=== PATIENT | male | born 1945 | race Caucasian/White ===

== ENCOUNTER → 2018-06-17 10:49 | Outpatient (CLI) | payer MEDICARE, OTHER, SELFPAY ==
--- NOTE | 2018-06-17 | DI.RAD.S_ITS ---
PROCEDURE: XR FOOT LT MIN 3V INDICATIONS: Pain in unspecified foot TECHNIQUE: 3 views of the foot were acquired. COMPARISON: None. FINDINGS: Bones: Osteotomy of the fifth metatarsal. No fractures or dislocations. No suspicious bony lesions. There is a large osteophyte at the first metatarsophalangeal joint. Mild degenerative joint disease with joint space narrowing in multiple interphalangeal joints. Soft tissues: No tibiotalar joint effusion. Achilles tendon appears normal. IMPRESSION: 1. Osteotomy of the fifth metatarsal. 2. Large osteophyte at the first metatarsophalangeal joint. 3. Mild degenerative joint disease in multiple interphalangeal joints. Dictated by: Wilbert Moreno M.D. on 06/17/2018 at 16:40 Approved by: Wilbert Moreno M.D. on 06/17/2018 at 16:42
[2018-06-17 11:43] LABS: Add Manual Diff / Slide Review NO; Basophils Percent Auto 0.5 % (0-2); Eosinophils Percent Auto 3.6 % (2-4); Hematocrit 39.4 % (41-53); Lymphocytes Percent Auto 23.9 % (25-40); Mean Corpuscular HGB Conc 35.7 % (30-36); Mean Corpuscular Hemoglobin 30.7 PG (26-34); Mean Corpuscular Volume 86.1 fL (80-100); Monocytes Percent Auto 9.8 % (3-14); Neutrophils Absolute Auto 4000 /uL (3000-5900); Neutrophils Percent Auto 62.2 % (50-75); Platelet Count 159 X10^3/uL (150-400); Red Blood Cell Count 4.57 X10^6/uL (4.5-5.9); Red Cell Distribution Width 13.3 % (11.6-14.8); White Blood Cell Count 6.5 X10^3/uL (4.5-11.0)
[2018-06-17 11:51] LABS: Alanine Aminotransferase 30 IU/L (21-72); Albumin 4.2 g/dL (3.5-5.0); Albumin Globulin Ratio 1.6 (1.0-2.8); Alkaline Phosphatase 53 U/L (38-126); Aspartate Aminotransferase 20 IU/L (17-59); Bilirubin Total 0.7 mg/dL (0.2-1.3); Blood Urea Nitrogen 18 mg/dL (9-20); Calcium 9.1 mg/dL (8.4-10.2); Carbon Dioxide 28 mmol/L (22-32); Chloride 104 mmol/L (98-107); Cholesterol 98 mg/dL (140-199); Estimated Glomerular Filt Rate > 60.0 mL/min (>60); Globulin 2.6 g/dL (1.7-4.1); Glucose 108 mg/dL (80-110); HDL Cholesterol 42 mg/dL (40-60); HEMOLYSIS < 15 (0-50); LDL Cholesterol Calculated 38 mg/dL (<100); Potassium 4.4 mmol/L (3.4-5.1); Sodium 141 mmol/L (137-145); Total Protein 6.8 g/dL (6.3-8.2); Triglycerides 90 mg/dL (35-150)
[2018-06-17 12:20] LABS: Prostate Specific Antigen Scrn 1.41 ng/mL (0.1-4.0)
== END ==
PROVIDERS: PCP Internal Medicine; Visit Provider Internal Medicine
DX: I25.10 Atherosclerotic heart disease of native coronary artery without angina pectoris (principal); E78.00 Pure hypercholesterolemia, unspecified; I10 Essential (primary) hypertension; E66.9 Obesity, unspecified; M79.673 Pain in unspecified foot; Z12.5 Encounter for screening for malignant neoplasm of prostate
CPT/HCPCS: 36415; 73630; 80053; 80061; 85025; G0103

== ENCOUNTER → 2019-04-14 14:08 | Outpatient (CLI) | payer MEDICARE, OTHER, SELFPAY ==
[2019-04-14 15:01] LABS: Add Manual Diff / Slide Review NO; Basophils Absolute Auto 0 /uL (0-100); Basophils Percent Auto 0.5 % (0-2); Eosinophils Absolute Auto 100 /uL (0-450); Eosinophils Percent Auto 1.3 % (2-4); Hematocrit 42.3 % (41-53); Hemoglobin 14.7 g/dL (13.5-17.5); Lymphocytes Absolute Auto 1900 /uL (1100-4500); Lymphocytes Percent Auto 23.7 % (25-40); Mean Corpuscular HGB Conc 34.7 % (30-36); Mean Corpuscular Hemoglobin 30.7 PG (26-34); Mean Corpuscular Volume 88.6 fL (80-100); Monocytes Absolute Auto 900 /uL (0-900); Monocytes Percent Auto 11.4 % (3-14); Neutrophils Absolute Auto 5000 /uL (1500-7000); Neutrophils Percent Auto 63.1 % (50-75); Platelet Count 198 X10^3/uL (150-400); Red Blood Cell Count 4.78 X10^6/uL (4.5-5.9); Red Cell Distribution Width 13.3 % (11.6-14.8)
[2019-04-14 15:16] LABS: Alanine Aminotransferase 22 IU/L (21-72); Albumin 4.3 g/dL (3.5-5.0); Albumin Globulin Ratio 1.6 (1.0-2.8); Alkaline Phosphatase 49 U/L (38-126); Aspartate Aminotransferase 20 IU/L (17-59); BUN Creatinine Ratio 24.4 (6-22); Bilirubin Total 0.6 mg/dL (0.2-1.3); Blood Urea Nitrogen 22 mg/dL (9-20); Calcium 9.2 mg/dL (8.4-10.2); Carbon Dioxide 27 mmol/L (22-32); Chloride 103 mmol/L (98-107); Estimated Glomerular Filt Rate > 60.0 mL/min (>60); Globulin 2.7 g/dL (1.7-4.1); Glucose 87 mg/dL (80-110); HEMOLYSIS < 15 (0-50); Potassium 3.8 mmol/L (3.4-5.1); Sodium 138 mmol/L (137-145)
[2019-04-14 15:30] LABS: Erythrocyte Sedimentation Rate 4 MM/HR (0-15)
== END ==
PROVIDERS: PCP Internal Medicine; Visit Provider Internal Medicine
DX: I10 Essential (primary) hypertension (principal); R10.12 Left upper quadrant pain
CPT/HCPCS: 36415; 80053; 85025; 85651

== ENCOUNTER → 2019-12-12 14:02 | Outpatient (CLI) | payer MEDICARE, OTHER, SELFPAY ==
[2019-12-12 16:56] LABS: Alanine Aminotransferase 18 IU/L (<50); Albumin 4.5 g/dL (3.5-5.0); Albumin Globulin Ratio 1.7 (1.0-2.8); Alkaline Phosphatase 58 U/L (38-126); Aspartate Aminotransferase 22 IU/L (17-59); BUN Creatinine Ratio 17.6 (6-22); Bilirubin Total 0.6 mg/dL (0.2-1.3); Blood Urea Nitrogen 22 mg/dL (9-20); Calcium 9.8 mg/dL (8.4-10.2); Carbon Dioxide 28 mmol/L (22-32); Chloride 101 mmol/L (98-107); Cholesterol 110 mg/dL (140-199); Estimated Glomerular Filt Rate 56.3 mL/min (>60); Globulin 2.6 g/dL (1.7-4.1); Glucose 106 mg/dL (80-110); HDL Cholesterol 45 mg/dL (40-60); HEMOLYSIS < 15 (0-50); LDL Cholesterol Calculated 23 mg/dL (<100); Sodium 137 mmol/L (137-145); Total Protein 7.1 g/dL (6.3-8.2); Triglycerides 208 mg/dL (35-150)
== END ==
PROVIDERS: PCP Internal Medicine; Referring Provider Internal Medicine Cardiovascular Disease; Visit Provider Internal Medicine Cardiovascular Disease
DX: E78.2 Mixed hyperlipidemia (principal); I10 Essential (primary) hypertension; I25.119 Atherosclerotic heart disease of native coronary artery with unspecified angina pectoris
CPT/HCPCS: 36415; 80053; 80061

== ENCOUNTER → 2020-07-23 08:42 | Outpatient (CLI) | payer MEDICARE, OTHER, SELFPAY ==
[2020-07-24 14:35] LABS: Fecal Immunochemical Test Negative (Negative)
== END ==
PROVIDERS: PCP Student in an Organized Health Care Education/Training Program; Referring Provider Student in an Organized Health Care Education/Training Program; Visit Provider Student in an Organized Health Care Education/Training Program
DX: Z12.11 Encounter for screening for malignant neoplasm of colon (principal)
CPT/HCPCS: 36415; 82274

== ENCOUNTER → 2020-11-29 15:54 | Outpatient (CLI) | payer MEDICARE, OTHER, SELFPAY ==
--- NOTE | 2020-11-29 15:56 | DI.MRI.S_ITS ---
PROCEDURE: MR KNEE RT WO CON INDICATIONS: Right knee pain TECHNIQUE: Noncontrast sagittal PD fast spin echo and T2 fast spin echo with fat saturation, sagittal 3-D FLASH with fat saturation; coronal T1 spin echo and PD fast spin echo with fat saturation, and axial PD fast spin echo with fat saturation through the knee. COMPARISON: None. FINDINGS: Image quality: Excellent. Menisci: Medial meniscal tear involving the posterior horn and body. Abnormal signal extends to the superior and inferior articular surfaces and there is a 4 mm parameniscal cyst adjacent to the body on image 29/14. Slight partial extrusion. Lateral meniscus intact. Cruciate ligaments: Anterior cruciate ligament appears intact. Posterior cruciate ligament appears intact. Medial structures: There is medial bowing of the medial collateral ligament, with mild internal signal changes and no complete rupture. There is adjacent soft tissue edema. The appearance could reflect reactive changes to medial compartment pathology, versus low-grade sprain of the MCL. Pes anserinus tendons appear grossly unremarkable. Semimembranosus insertional tendinopathy. Lateral structures: The lateral collateral ligament intact. Biceps femoris tendon appears intact. Popliteus tendon grossly unremarkable. Iliotibial band appears intact. Anterior structures: Quadriceps tendon intact. Medial and lateral patellofemoral ligaments intact. There is mild patellar tendinopathy. Prepatellar and superficial infrapatellar subcutaneous edema/fluid. Bones and cartilage: Circumferential subcutaneous edema. No focal marrow contusion or discrete low signal fracture line. Within the medial compartment, mild diffuse surface fraying of the femoral and tibial cartilage without focal defect. Within the lateral compartment, cartilage appears intact Within the patellofemoral compartment, cartilage appears grossly intact. Joint space: Small joint effusion. No Rossi's cyst. No specific evidence of intra-articular loose body. IMPRESSION: Medial meniscal tear involving the posterior horn and body, with associated 4 mm parameniscal cyst adjacent to the body. There is also slight partial extrusion Adjacent MCL changes as above. Mild degenerative joint disease Small joint effusion Mild patellar tendinopathy with adjacent fluid and edema. Circumferential subcutaneous edema. Dictated by: Jose Mckeon M.D. on 11/30/2020 at 8:44 Approved by: Jose Mckeon M.D. on 11/30/2020 at 9:32
== END ==
PROVIDERS: PCP Student in an Organized Health Care Education/Training Program; Referring Provider Student in an Organized Health Care Education/Training Program; Visit Provider Student in an Organized Health Care Education/Training Program
DX: S83.241A Other tear of medial meniscus, current injury, right knee, initial encounter (principal); M25.461 Effusion, right knee
CPT/HCPCS: 73721

== ENCOUNTER → 2021-03-25 13:33 | Outpatient (CLI) | payer MEDICARE, OTHER, SELFPAY ==
[2021-03-25 14:29] LABS: Hematocrit 40.1 % (41-53); Hemoglobin 13.9 g/dL (13.5-17.5); Mean Corpuscular HGB Conc 34.6 % (30-36); Mean Corpuscular Hemoglobin 30.9 PG (26-34); Mean Corpuscular Volume 89.3 fL (80-100); Platelet Count 177 X10^3/uL (150-400); Red Blood Cell Count 4.49 X10^6/uL (4.5-5.9); Red Cell Distribution Width 13.7 % (11.6-14.8); White Blood Cell Count 7.2 X10^3/uL (4.5-11.0)
[2021-03-25 14:38] LABS: Alanine Aminotransferase 18 IU/L (<50); Albumin 4.1 g/dL (3.5-5.0); Albumin Globulin Ratio 1.6 (1.0-2.8); Alkaline Phosphatase 60 U/L (38-126); Aspartate Aminotransferase 23 IU/L (17-59); BUN Creatinine Ratio 22.5 (6-22); Bilirubin Total 0.5 mg/dL (0.2-1.3); Blood Urea Nitrogen 18 mg/dL (9-20); Calcium 9.3 mg/dL (8.4-10.2); Carbon Dioxide 24 mmol/L (22-32); Chloride 102 mmol/L (98-107); Cholesterol 121 mg/dL (140-199); Estimated Glomerular Filt Rate > 60.0 mL/min (>60); Globulin 2.6 g/dL (1.7-4.1); Glucose 96 mg/dL (80-110); HDL Cholesterol 43 mg/dL (40-60); HEMOLYSIS < 15 (0-50); LDL Cholesterol Calculated 13 mg/dL (<100); Sodium 135 mmol/L (137-145); Total Protein 6.7 g/dL (6.3-8.2); Triglycerides 324 mg/dL (35-150)
[2021-03-25 15:08] LABS: TSH w/ Reflex to FT4 1.71 uIU/mL (0.47-4.68)
== END ==
PROVIDERS: PCP Student in an Organized Health Care Education/Training Program; Referring Provider Nurse Practitioner Family; Visit Provider Nurse Practitioner Family
DX: I25.10 Atherosclerotic heart disease of native coronary artery without angina pectoris (principal); I10 Essential (primary) hypertension; E78.2 Mixed hyperlipidemia
CPT/HCPCS: 36415; 80053; 80061; 84443; 85027

== ENCOUNTER → 2021-04-10 13:37 | Outpatient (CLI) | payer MEDICARE, OTHER, SELFPAY ==
[2021-04-10 14:50] LABS: Hematocrit 42.3 % (41-53); Hemoglobin 14.6 g/dL (13.5-17.5); Mean Corpuscular HGB Conc 34.5 % (30-36); Mean Corpuscular Hemoglobin 30.8 PG (26-34); Mean Corpuscular Volume 89.1 fL (80-100); Platelet Count 184 X10^3/uL (150-400); Red Blood Cell Count 4.74 X10^6/uL (4.5-5.9); Red Cell Distribution Width 13.5 % (11.6-14.8)
[2021-04-10 15:45] LABS: TSH w/ Reflex to FT4 1.96 uIU/mL (0.47-4.68)
[2021-04-10 15:51] LABS: BUN Creatinine Ratio 26.1 (6-22); Blood Urea Nitrogen 29 mg/dL (9-20); Calcium 9.5 mg/dL (8.4-10.2); Carbon Dioxide 25 mmol/L (22-32); Chloride 102 mmol/L (98-107); Cholesterol 120 mg/dL (140-199); Estimated Glomerular Filt Rate > 60.0 mL/min (>60); Glucose 107 mg/dL (80-110); HDL Cholesterol 43 mg/dL (40-60); HEMOLYSIS < 15 (0-50); LDL Cholesterol Calculated 53 mg/dL (<100); Potassium 4.1 mmol/L (3.4-5.1); Sodium 134 mmol/L (137-145); Triglycerides 119 mg/dL (35-150)
== END ==
PROVIDERS: PCP Student in an Organized Health Care Education/Training Program; Referring Provider Nurse Practitioner Family; Visit Provider Nurse Practitioner Family
DX: I10 Essential (primary) hypertension (principal); E78.2 Mixed hyperlipidemia
CPT/HCPCS: 36415; 80048; 80061; 84443; 85027

== ENCOUNTER → 2021-05-01 15:14 | Outpatient (CLI) | payer MEDICARE, OTHER, SELFPAY ==
[2021-05-01 17:36] LABS: BUN Creatinine Ratio 22.3 (6-22); Blood Urea Nitrogen 25 mg/dL (9-20); Calcium 9.5 mg/dL (8.4-10.2); Carbon Dioxide 20 mmol/L (22-32); Chloride 103 mmol/L (98-107); Estimated Glomerular Filt Rate > 60.0 mL/min (>60); Glucose 90 mg/dL (80-110); HEMOLYSIS < 15 (0-50); Potassium 4.3 mmol/L (3.4-5.1); Sodium 135 mmol/L (137-145)
== END ==
PROVIDERS: PCP Student in an Organized Health Care Education/Training Program; Referring Provider Nurse Practitioner Family; Visit Provider Nurse Practitioner Family
DX: I10 Essential (primary) hypertension (principal)
CPT/HCPCS: 36415; 80048

== ENCOUNTER → 2022-01-02 12:05 | Outpatient (CLI) | payer MEDICARE, OTHER, SELFPAY ==
[2022-01-03 15:06] LABS: Fecal Immunochemical Test Negative (Negative)
== END ==
PROVIDERS: PCP Student in an Organized Health Care Education/Training Program; Referring Provider Student in an Organized Health Care Education/Training Program; Visit Provider Student in an Organized Health Care Education/Training Program
DX: Z12.11 Encounter for screening for malignant neoplasm of colon (principal)
CPT/HCPCS: 82274

== ENCOUNTER → 2022-08-02 08:12 | Outpatient (CLI) | payer MEDICARE, OTHER, SELFPAY ==
[2022-08-02 12:11] LABS: Add Manual Diff / Slide Review NO; Basophils Absolute Auto 0 /uL (0-100); Basophils Percent Auto 0.7 % (0-2); Eosinophils Absolute Auto 400 /uL (0-450); Eosinophils Percent Auto 6.2 % (2-4); Hematocrit 33.8 % (41-53); Hemoglobin 11.8 g/dL (13.5-17.5); Lymphocytes Absolute Auto 1300 /uL (1100-4500); Lymphocytes Percent Auto 20.5 % (25-40); Mean Corpuscular Hemoglobin 31.7 PG (26-34); Mean Corpuscular Volume 90.7 fL (80-100); Monocytes Absolute Auto 600 /uL (0-900); Monocytes Percent Auto 9.4 % (3-14); Neutrophils Absolute Auto 3900 /uL (1500-7000); Neutrophils Percent Auto 63.2 % (50-75); Platelet Count 168 X10^3/uL (150-400); Red Blood Cell Count 3.72 X10^6/uL (4.5-5.9); White Blood Cell Count 6.2 X10^3/uL (4.5-11.0)
[2022-08-02 13:47] LABS: Hemoglobin A1C% w Est Avg Glu 5.4 % (4.0-6.0)
[2022-08-02 13:54] LABS: BUN Creatinine Ratio 27.7 (6-22); Blood Urea Nitrogen 46 mg/dL (9-20); Calcium 8.7 mg/dL (8.4-10.2); Carbon Dioxide 21 mmol/L (22-32); Chloride 105 mmol/L (98-107); Estimated Glomerular Filt Rate 42 mL/min (>60); Glucose 107 mg/dL (80-110); HEMOLYSIS < 15 (0-50); Potassium 4.9 mmol/L (3.4-5.1); Sodium 137 mmol/L (137-145)
== END ==
PROVIDERS: PCP Student in an Organized Health Care Education/Training Program; Referring Provider Orthopaedic Surgery; Visit Provider Orthopaedic Surgery
DX: Z01.812 Encounter for preprocedural laboratory examination (principal); R73.9 Hyperglycemia, unspecified; M25.561 Pain in right knee
CPT/HCPCS: 36415; 80048; 83036; 85025

== ENCOUNTER → 2022-08-18 08:53 | Outpatient (CLI) | payer MEDICARE, OTHER, SELFPAY ==
[2022-08-18 10:05] LABS: COVID19 -Nasal RAPID Negative (Negative)
== END ==
PROVIDERS: PCP Student in an Organized Health Care Education/Training Program; Referring Provider Orthopaedic Surgery; Visit Provider Orthopaedic Surgery
DX: Z20.822 Contact with and (suspected) exposure to COVID-19 (principal)
CPT/HCPCS: 87635; C9803

== ENCOUNTER 2022-08-20 12:29 | Day surgery (SDC) | payer MEDICARE, OTHER, SELFPAY ==
[2022-08-14 10:31] VITALS: BMI 32.3
[2022-08-20] VITALS (14 sets, daily range): BP systolic 109–131; BP diastolic 51–67; PULSE 56–65; RESP 11–33; TEMP 35.7–36.6; O2SAT 93–99; BMI 32.3
--- NOTE | 2022-08-20 06:00 | DI.RAD.S_ITS ---
PROCEDURE: XR KNEE RT 1TO2V INDICATIONS: prosthesis placement TECHNIQUE: 2 view(s) of the knee acquired. [facility], [facility] KNEE 4+ VIEWS RIGHT, 12/03/2021, 9:19. FINDINGS: Bones: Patient is status post knee joint arthroplasty. Hardware components are in expected positions. Visualized bony structures are intact. Soft tissues: Overlying postoperative changes are noted. IMPRESSION: Status post right total knee arthroplasty without acute hardware complication. Dictated by: Yo Lezama M.D. on 08/20/2022 at 17:24 Approved by: Yo Lezama M.D. on 08/20/2022 at 17:24
[2022-08-20] MEDS: ACETAMINOPHEN 325 MG TABLET 975 MG PO (13:23)
[2022-08-20] MEDS: PREGABALIN 75 MG CAPSULE PO (13:25)
[2022-08-20] MEDS: LACTATED RINGERS 1,000 ML 42 ML IV ×2 (13:51→16:02)
--- NOTE | 2022-08-20 14:09 | PM.PREOP ---
Pre-operative Note COVID-19 COVID-19 status: Negative Result date/Date tested (Pos, Neg/Pending): 08/18/22 Interval Note History & Physical reviewed/Exam performed by Physician: Yes Changes to H&P: No
[2022-08-20] MEDS: CEFAZOLIN 2 GM/100 ML PREMIX 100 ML IV ×2 (15:15→22:57)
[2022-08-20] MEDS: TRANEXAMIC ACID 1,000 MG VIAL 1000 MG INJ ×2 (15:20→16:22)
--- NOTE | 2022-08-20 15:32 | SUR.OPER ---
Supine on padded OR bed. Pillow under head, arms secured on padded armboards <90 degree abduction. Safety belt across torso. Non-operative leg secured with tape over blanket over lower leg. Operative leg secured in DeMayo/Vinnie/Nathe positioner. Foam padded brace at thigh of operative leg.
[2022-08-20] MEDS: BUPIVACAINE 0.25% (PF) 60 ML, EPINEPHrine 0.3 MG INJ (15:47)
[2022-08-20] MEDS: BUPIVACAINE LIPOSOME 266 MG/20 ML VIAL INJ (15:48)
[2022-08-20] MEDS: MORPHINE 4 MG/ML INJ INJ (15:48)
--- NOTE | 2022-08-20 16:36 | P.OP_ITS ---
Operative Date/Time/Diagnoses Date of procedure: 08/20/22 Time of procedure: 16:36 Pre-op diagnosis: Right knee osteoarthritis Post-op diagnosis: same (Also osteonecrosis of the medial femoral condyle) Procedure & Clinicians Procedure: Right total knee replacement Same procedure as scheduled: Yes Indications: The patient has had progressively worsening right knee pain with radiographic changes consistent with arthritis. Non-operative management has failed and the patient has requested total knee replacement. The risks, benefits and alter natives to surgery were discussed with the patient prior to proceeding. Risks discussed included, but were not limited to, failure to relieve pain, stiffness, infection, nerve damage, deep venous thrombosis, pulmonary embolism, stroke, coma, heart attack, permanent paralysis and , as well as the potential need for eventual revision of the prosthetic. 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 Closure Type: primary Specimen(s): none sent Prosthetic devices, grafts, tissues, transplants, or devices: Implants used in this procedure were manufactured by the [employer] and [employer] and included the BCS II Journey total knee replacement with a size 8 right cobalt chromium femoral component, a size 7 right non porous tibial base plate, a 9 mm cross-linked polyethylene tibial insert and a 41 mm oval Angelique II patella. Applied: implant(s) Estimated Blood Loss (mL): 25 Blood products transfused: none Tourniquet time (min): 47 Procedure in detail: The patient was seen in the pre-operative area, where the patient identified the right knee as the operative site and this was marked with my initials. The patient received pre-operative antibiotics, and was taken to the operating room and placed on the operative table in the supine position. After satisfactory anesthesia, a photovoltaic subcontractor out was performed. The right leg was encircled with a tourniquet about the proximal thigh, and the leg was prepared from the toes to the tourniquet with ChloroPrep in the usual fashion and draped through sterile drapes. The leg was elevated and exsanguinated with Eschmark bandage and the tourniquet inflated to 250 mmHg pressure. The knee was approached through an approximately 18 cm incision centered over the patella and carried into the knee through a medial parapatellar arthrotomy. The anterior osteophytes and soft tissues were removed. The rotational landmarks of Buchanan's line and the transepicondylar axis were marked on the femur with electrocautery, and intramedullary guide holes for the femur and tibia were created. The distal femoral cut was made in 6 degrees of valgus using the i ntramedullary guide at the primary cut setting. The proximal tibial cut was then made using the intramedullary guide, taking 9 mm of bone off the less involved side. The extension gap was checked and the rotation of the femoral component confirmed with the gap balancing system. The anterior, posterior and chamfer cuts were then made. The posterior osteophytes and soft tissues were then removed. The posterior capsule was injected with part of a mixture of 60 ml 0.25% Marcaine mixed with 20 ml Exparel and 4 mg of morphine for post-operative pain control. The remainder of this mixture was injected into the capsule and subcutaneous tissues during cement curing. The tibia was prepared with the rotation set by an extra medullary guide. Trial tibial and femoral components were then placed and the intercondylar notch cut through the femoral trial. Range of motion was 0-140 degrees, with good stability throughout the range. The patella was then cut to accommodate the patellar prosthetic. There was no need for a lateral release. The trials were then removed, and the femoral hole plugged with a bone plug. The bone was prepared with pulsatile lavage, and dried with a sponge. Cement was applied and the final prosthetics placed. Excess cement was removed during and after cement curing. After confirming there was no extruded cement posteriorly, the final tibial insert was placed. The knee was copiously irrigated and the tourniquet deflated. Hemostasis was obtained. The capsule was closed with interrupted # 2 polyester suture. The subcutaneous layer was closed with 3-0 Vicryl, and the skin with a running 3-0 V-Lock suture and Dermabond. An Aquacel Ag dressing was applied and the patient was taken to recovery having tolerated the procedure well. The services of Vishnu Castro were required for positioning, exposure and retraction to protect vital structures. Without her services as a skilled assistant director of residence life the procedure could not have been completed in a safe and expedient fashion. Complications: none Post-operative Condition: stable Disposition: PACU Plan for aftercare: The patient will be maintained on a standard total knee replacement protocol with weight bearing as tolerated. The patient will receive aspirin and sequential compression devices for DVT prophylaxis. The patient will be discharged home when safe for the home environment.
--- NOTE | 2022-08-20 17:28 | SUR.PHASEI ---
Patient transferred to the floor with his walker, CPAP, glasses and two belongings bags. Report given to Kenna. Right knee dressing CDI. IV saline locked. VS stable.
[2022-08-20] MEDS: LACTATED RINGERS 1,000 ML 100 ML IV (18:21)
[2022-08-20] MEDS: ACETAMINOPHEN 325 MG TABLET 650 MG PO (18:31)
[2022-08-20] MEDS: IBUPROFEN 400 MG TABLET PO (18:31)
--- NOTE | 2022-08-20 18:46 | PC.NURSE ---
Patient to floor around 1725. He had a r.total knee surgery, his dressing is cdi with aquacel in place. He has feeling all the way down to his foot. Patient had a spinal so he denies pain. Ate 100% of his dinner, and denies nausea. He has LR at 100cc/hr and is tolerating well. Visiting with daughter at this time. Patient has a small incision to lower back from where spinal was.
[2022-08-20] MEDS: OXYCODONE IR 5 MG TABLET PO ×2 (20:07→23:01)
[2022-08-20] MEDS: ASPIRIN EC 81 MG TABLET PO (20:07)
[2022-08-20] MEDS: DOCUSATE 100 MG CAPSULE PO (20:08)
[2022-08-20] MEDS: ATORVASTATIN 20 MG TABLET PO (20:08)
[2022-08-20] MEDS: carvediloL 12.5 MG TABLET 25 MG PO (20:09)
[2022-08-21] MEDS: ACETAMINOPHEN 325 MG TABLET 650 MG PO ×4 (00:21→18:46)
[2022-08-21] MEDS: IBUPROFEN 400 MG TABLET PO ×5 (00:22→20:09)
[2022-08-21 03:41] VITALS: BP 105/48; PULSE 59; RESP 17; TEMP 36; O2SAT 97
[2022-08-21] MEDS: LACTATED RINGERS 1,000 ML 100 ML IV (04:33)
[2022-08-21] MEDS: CEFAZOLIN 2 GM/100 ML PREMIX 100 ML IV (05:57)
[2022-08-21 06:23] LABS: Hematocrit 29.2 % (41-53)
[2022-08-21 08:00] VITALS: BP 117/53; PULSE 54; RESP 16; TEMP 36.1; O2SAT 96
--- NOTE | 2022-08-21 08:01 | PM.DS.1 ---
History of Present Illness History of Present Illness Date Patient Seen: 08/21/22 Time Patient Seen: 08:01 Chief complaint: OPB Narrative: The history and physical is contained in the chart previously completed note. Please refer to that note for this information. Discharge Providers Provider Date of admission: August 20, 2022 Discharge Date: 08/21/22 Primary care physician: Bogdan Medrano MD Consults: 08/20/22 17:27 Consult to Discharge Planning Routine Comment: Consult to Physical Therapy Evaluate & Treat Comment: Physician Instructions: postop TKA protocol Discharge provider: Vinay Kulkarni MD Summary Hospital Course Discharge Diagnosis: 1. Right knee osteoarthritis 2. 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 Post hemorrhagic anemia Hospital Course: The patient was admitted to the hospital and taken directly to the operating room on August 20, 2022. He underwent a right total knee replacement without complications. He was comfortable on postoperative day 1. He had a moderate post hemorrhagic anemia, this was felt to be something that would resolve with normal diet. Status at Discharge Cognitive/behavioral status at discharge: at baseline, oriented Functional status at discharge: uses cane/walker Overall status at discharge: patient is progressing back to baseline Time Spent with Patient Time spent: Less than 30 minutes Exam Vital Signs (past 8 hours): - 08/21/22 03:41 Temperature 96.8 F L Pulse Rate 59 L Respiratory Rate 17 Blood Pressure 105/48 L Pulse Oximetry 97 Oxygen Flow Rate 0 Oxygen Delivery Method Room Air Oxygen Flow Rate 0 Narrative Exam Narrative: Right knee wound is dressed with no drainage on the bandage. Calf is soft. Light touch and motion are intact in the right lower extremity. 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 Nasal polyposis Obesity (BMI 30-39.9) Obstructive sleep apnea of adult (~2016) Silent ischemia Snoring Surgical History History of cardiac cath History of cataract removal with insertion of prosthetic lens History of coronary artery stent placement Hx of colectomy (2002) Hx of toe surgery (~2006) Status post arthroscopic partial lateral meniscectomy Social History marital status: details: with progressive supranuclear palsy household members: children and none lives independently: Yes caregiver/support person: Yes (he is the caregiver for his ) housing: house Smoking Status: Never smoker alcohol intake: current Discharge Assessment & Plan Assessment and Plan Assessment: Stable postoperative day 1 status post total knee replacement with moderate post hemorrhagic anemia. Pain is well controlled. Plan of Treatment: Likely discharge today. We anticipate his anemia respond to normal dietary measures. Follow up in my office in 10-14 days. Outpatient physical therapy. Medications have been called to the pharmacy for his pain medication. He has been instructed in the use of anti-inflammatories and Tylenol for additional pain relief and the use of low-dose aspirin for DVT prophylaxis. Discharge Plan Discharge Plan Patient Disposition: Home Discharge orders & Medications Discharge Orders: Discharge (Order); Ordered 08/21/22 Ordered By: Vinay Kulkarni Prescriptions: New acetaminophen 325 mg Tablet 650 mg PO Q6HR Qty: 250 0RF aspirin 81 mg Tablet,Delayed Release (Dr/Ec) 81 mg PO BID Qty: 84 0RF oxycodone 5 mg Tablet 5 mg PO Q4H PRN (Reason: Pain, Moderate (4-6)) Qty: 40 0RF Continued carvedilol [Coreg] 25 MG tablet 25 mg PO BID Qty: 0 Fish Oil 1,000 mg PO QDAY Qty: 0 rosuvastatin [Crestor] 20 mg tablet 10 mg PO QDAY Qty: 0 losartan-hydrochlorothiazide 100-25 mg tablet 1 tab PO DAILY doxazosin 1 mg tablet 1 mg PO DAILY spironolactone 25 mg tablet 25 mg PO DAILY naproxen sodium [Aleve] 220 mg Capsule 440 mg PO BID PRN (Reason: Pain) Discontinued aspirin [Adult Low Dose Aspirin] 81 mg tablet,delayed release (DR/EC) 81 mg PO DAILY acetaminophen 500 mg Tablet 1,300 mg PO BID PRN (Reason: Pain) No Action (DME) [employer] AirSense 10 Auto See Rx Instructions .Route .MEDSUPPLY Rx Instructions: CPAP Min: 6 Max: 12 DME: Follow up/Referrals: Bogdan Medrano MD [Primary Care Provider] - Vinay Kulkarni MD [Physician] - As previously scheduled Diet/Activity/Treatments Diet: Diet as Tolerated and Regular Activity: You may bear weight as tolerated on your right knee. Cold/Heat Therapy: You may apply ice to your right knee for 15 minutes every hour as needed for pain control. Skin/Wound/Dressing Care Report to your healthcare provider any signs of infection, such as:: chills, fever, night sweats, increased pain, unusual drainage and unusual redness Dressing: You may remove the Epifanio wrap 3 days after surgery and shower normally with the deeper dressing in place. Leave the deeper dressing in place until your postoperative follow-up. If the central strip of the dressing becomes saturated with either water or blood, please call the office to have it evaluated. Visit Report/Discharge Packet Instructions: DI for Knee Replacement Stand Alone Forms: Surgery Discharge Discharge Data Primary Care Provider: Bogdan Medrano Attending Provider: Vinay Kulkarni Quality VTE Deep Vein Thrombosis/Pulmonary Embolism Present on Admission: No
--- NOTE | 2022-08-21 09:34 | PT.IIE ---
Current Diagnoses Unilateral primary osteoarthritis, right knee (08/20/22) Surgery Performed Operation Date: 08/20/22 15:15 Actual Procedures p Total Knee Arthroplasty(Right) - Vinay Kulkarni MD Surgical History (Last Reviewed 08/20/22 @ 12:11 by Caty Quinonez, PAOLA) History of cardiac cath History of cataract removal with insertion of prosthetic lens History of coronary artery stent placement Hx of colectomy (2002) Hx of toe surgery (~2006) Status post arthroscopic partial lateral meniscectomy Medical History (Last Reviewed 08/20/22 @ 13:12 by Caty Quinonez, PAOLA) CAD (coronary artery disease) (2004) Diverticular disease of large intestine Excessive daytime sleepiness GERD (gastroesophageal reflux disease) Hyperlipidemia 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 Nasal polyposis Obesity (BMI 30-39.9) Obstructive sleep apnea of adult (~2015) Silent ischemia Snoring Physical Therapy Inpatient Evaluation/Re-Eval M1 PT/OT-IP Prior Functional Status Start: 08/21/22 10:22 Freq: NEEDED Status: Active Protocol: Document 08/21/22 09:34 DLM (Rec: 08/21/22 10:45 DL [id number]) Medical Review Prior Functional Status Medical History Reviewed Yes Diet/Fluid Consistency Regular Communication [place] JOLLA with aides, otherwise WFL Mobility and Gait Independent without device but limping due to right knee pain Activities of Daily Living and IADL's Independent, drives Prior Functional Level (Other details) His 2 Daughters plan to stay with him and assist as needed after surgery. 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 Social History Household Members children,none Living Arrangements House Number of Floors (Floors) One Floor Number of Stairs To Enter/Railing? no steps to enter Home Environment High Toilet,Walk in Shower Home Equipment Front Wheel Walker,Shower Seat with Backrest,Hand Held Shower,Grab Bars Near Toilet, Grab Bars In Shower Employment Status Retired Additional Social History Comment the house has a basement of his main living area is on the first floor, he uses CPAP at night M2 PT-IP Current Condition Start: 08/21/22 10:22 Freq: NEEDED Status: Active Protocol: Document 08/21/22 09:34 DLM (Rec: 08/21/22 10:45 DL [id number]) Physical Therapy Current Condition Current Condition Evaluation Date 08/21/22 Treatment Diagnosis right TKA, impaired gait/ mobility Onset Date 08/20/22 M3 PT-IP Subjective Start: 08/21/22 10:22 Freq: NEEDED Status: Active Protocol: Document 08/21/22 09:34 DLM (Rec: 08/21/22 10:45 [facility] [id number]) Subjective Physical Therapy Visit Type Type Initial Evaluation Visit Start Time 09:00 Visit Stop Time 09:34 Total Visit Minutes 34 Number of SECTIONIZER Visits 0 Physical Therapy Visit Comments Patient Comments His knee is more sore than he expected it. He has out-pt PT scheduled for after surgery but he is worried about rides. Patient Goals Discharge home with his Daughters to help Therapy Pain Assessment Pain When Pain Assessed During Mobility Pain Present Pain Present Pain Reported Location Right Knee Intensity 7 Scale Used Numeric (0 - 10) Description Aching,Tender,Tightness,With Movement Pain Behaviors Facial Grimacing,Guarding, Wincing Pain Management Techniques Apply Cold,Elevation,Re- positioning,Timing of Activity with Medications M4 PT-IP Mobility and Gait Start: 08/21/22 10: Freq: NEEDED Status: Active Protocol: Document 08/21/22 09:34 DL (Rec: 08/21/22 10:45 [facility] [id number]) PT-Bed Mobility Assessment Supine to Sit Supine to Sit Standby Assistance,Head of Bed Elevated Scooting Scooting to Edge of Bed Independent PT-Transfer Assessment Sit to and From Stand Sit to and from Stand Contact Guard Assistance,Use of Upper Extremities Equipment Transfer Assistive Device Gait Belt,Front Wheeled Walker Transfers Transfer Destination Chair Transfer Technique Stand Step Pivot Transfer Ability Level of Assist Contact Guard Assistance,Use of Upper Extremities Comments Mobility Comments Pt ambulated a short distance in the room before sitting in the recliner. He reports onset of dizziness/light-headedness after sitting. Vitals signs checked with BP 116/62 (Map 80 ), HR 57 and O2 sat on room air 97%. His symptoms resolved with a seated rest break. Pt left up in the recliner with his feet elevated and ice on his right knee. His needs are close and pt instructed to have staff assist with mobility. His nurse was notified of his pain and symptoms during mobility. Gait Assessment Gait Gait Assistance Required: Contact Guard Assist Distance (Feet) 20 Able to Maintain Weight Bearing Status Yes During Gait Assistive Devices Assistive Device Gait Belt,Front Wheeled Walker Gait Deviations General Gait Pattern Antalgic Factors Limiting Gait Function Factors Limiting Gait Function Decreased Activity Tolerance, Decreased Strength,Limited Range of Motion,Pain,Poor Balance Comments Gait Comments He is using significant UE support on the FWW to manage his right knee pain. Adjusted his FWW down one notch to better accomadate his need for UE support. Stair Climbing Assessment Comments Stair Climbing Comments no stairs at home PT-Balance Assessment Sitting Balance and Reactions Static Sitting Balance Ability Good Dynamic Sitting Balance Ability Good Standing Balance and Reactions Static Standing Balance Ability Good Dynamic Standing Balance Ability Fair Device Used FWW M5 PT-IP Objective Assessments Start: 08/21/22 10:22 Freq: NEEDED Status: Active Protocol: Document 08/21/22 09:34 DL (Rec: 08/21/22 10:45 [facility] [id number]) Orientation Orientation/Cognition Level of Alertness Alert Orientation Name,Age,Birthday,Month,Date, Year,Day of Week,Place, Situation Language Function Ability Hard of Hearing Safety Awareness Understands Safety Issues Memory Description No Deficits Noted Comments his hearing aides are at home Gross Range of Motion Upper Extremity ROM Assessment Within Functional Limits Impairments hx of right shoulder soreness that he thinks is arthritic Lower Extremity ROM Assessment Right Impaired Impairments AROM 22-90, he reports inability to fully extend right knee before surgery Strength Upper Extremity Strength Assessment Within Functional Limits Lower Extremity Strength Assessment Right Impaired Hip needs assist to do SLR Knee extension seated 3-/5 Ankle DF 5/5 Comments Strength Comments pain right knee post-op interferes with functional strength Coordination Assessment Gross Coordination Gross Coordination WNL Sensation Assessment Sensation Gross Sensation WNL Comments Sensation Comments tio wrap and dressing on knee that was not removed for this assessment Muscle Tone Muscle Tone WNL Yes M6 PT-IP Treatment Start: 08/21/22 10:22 Freq: NEEDED Status: Active Protocol: Document 08/21/22 09:34 DL (Rec: 08/21/22 10:45 [facility] [id number]) Physical Therapy Treatment Exercises Exercises Ankle Pumps,Quad Sets,Heel Slides,Straight Leg Raises, Short Arc Quads,Passive Knee Extension Hang,Seated Knee Flexion/Extension Education Education Provided Weight Bearing Status,Post-Op Packet,Safety Equipment Issued Equipment Type and Company his FWW from home is in his room [facility] M7 PT-IP Assessment and Plan Start: 08/21/22 10:22 Freq: NEEDED Status: Active Protocol: Document 08/21/22 09:34 DLM (Rec: 08/21/22 10:45 DLM [id number]) PT Summary Assessment and Plan Potential Rehabilitation Potential Excellent Status of Condition at Evaluation Evolving Summary Impairments Pain,ROM,Strength,Balance,Bed Mobility,Transfers,Gait, Activity Tolerance Assessment Summary Jayden shows good effort with therapy today. He feels his knee pain is interfering with his mobility this visit. He tolerated a short distance of gait in his room with the FWW. He got light-headed after gait whenn sitting in the recliner that resolved with seated rest break. He was able to start his knee exercise today. He plans to go home with his Daughters helping him . He will need to be able to progress his gait to more functional distances to be safe to discharge home. he has not stairs to get into his home. Will plan to see him again for therapy this afternoon to determine if he can progress enough to go home or he will need to stay another night. Will continue to work towards his goal of home with assist from his Daughters. Pt plans to work with his nurse on pain management. Goals Bed Mobility Goal Independent Transfer Goal Independent,Front Wheeled Walker Gait Goal Independent,Front Wheel Walker Gait Distance 80 feet Days to Meet Goals 3 Frequency of Treatment Frequency Of Treatment Twice a Day Treatment Plan Physical Therapy Treatment Plan Bed Mobility Training,Transfer Training,Gait Training, Therapeutic Exercise,Balance Retraining,Post Op Education, Discharge Planning,Hot or Cold Pack,Neuromuscular Re-ed Precautions Other Precautions monitor for light-headedness during mobility Weight Bearing Status Weight Bearing Status Weight Bear as Tolerated Recommendations To Nursing Amount of Assist Needed 1 Person Assist Discharge Recommendations PT Discharge Recommendations Home with Assistance, Outpatient PT Other Discharge Recommendations not ready to go home yet today , will see him again in the afternoon Transportation Needs at Discharge Private Vehicle
[2022-08-21 10:05] VITALS: BP 117/53; PULSE 54
[2022-08-21] MEDS: carvediloL 12.5 MG TABLET 25 MG PO (10:05)
[2022-08-21] MEDS: SPIRONOLACTONE 25 MG TABLET PO (10:05)
[2022-08-21 10:06] VITALS: BP 117/53; PULSE 54
[2022-08-21] MEDS: ASPIRIN EC 81 MG TABLET PO ×2 (10:06→20:09)
[2022-08-21] MEDS: DOCUSATE 100 MG CAPSULE PO ×2 (10:06→20:09)
[2022-08-21] MEDS: OXYCODONE IR 5 MG TABLET PO ×2 (10:06→13:08)
[2022-08-21] MEDS: DOXAZOSIN 2 MG TABLET 1 MG PO (10:06)
--- NOTE | 2022-08-21 14:48 | PT.IPTN ---
Current Diagnoses Unilateral primary osteoarthritis, right knee (08/20/22) Surgery Performed Operation Date: 08/20/22 15:15 Actual Procedures p Total Knee Arthroplasty(Right) - Vinay Kulkarni MD Physical Therapy Treatment Note M2 PT-IP Current Condition Start: 08/21/22 10:22 Freq: NEEDED Status: Active Protocol: Document 08/21/22 09:34 DLM (Rec: 08/21/22 10:45 DLM [id number]) Physical Therapy Current Condition Current Condition Evaluation Date 08/21/22 Treatment Diagnosis right TKA, impaired gait/ mobility Onset Date 08/20/22 M3 PT-IP Subjective Start: 08/21/22 10:22 Freq: NEEDED Status: Active Protocol: Document 08/21/22 14:48 DLM (Rec: 08/21/22 15:27 DLM [id number]) Subjective Physical Therapy Visit Type Type Treatment Note Visit Start Time 14:00 Visit Stop Time 14:48 Total Visit Minutes 48 Number of PIG LEAD MELTER HELPER Visits 0 Physical Therapy Visit Comments Patient Comments He does not feel he is ready to go home today due to pain during mobility; he is requesting to stay one more night Patient Goals Discharge home with his Daughters to help Therapy Pain Assessment Pain When Pain Assessed During Mobility Pain Present Pain Present Pain Reported Location Right Knee Intensity 6 Scale Used Numeric (0 - 10) Description Aching,Tender,Tightness,With Movement Pain Behaviors Facial Grimacing,Guarding, Wincing Pain Management Techniques Apply Cold,Elevation,Re- positioning,Timing of Activity with Medications M4 PT-IP Mobility and Gait Start: 08/21/22 10:22 Freq: NEEDED Status: Active Protocol: Document 08/21/22 14:48 DLM (Rec: 08/21/22 15:27 DLM [id number]) PT-Bed Mobility Assessment Supine to Sit Supine to Sit Standby Assistance,Bedrails Sit to Supine Sit to Supine Standby Assistance,Bedrails Scooting Scooting to Edge of Bed Independent PT-Transfer Assessment Sit to and From Stand Sit to and from Stand Standby Assistance,Contact Guard Assistance,Use of Upper Extremities Equipment Transfer Assistive Device Gait Belt,Front Wheeled Walker Transfers Transfer Destination Bed,Chair Transfer Technique Stand Step Pivot Transfer Ability Level of Assist Standby Assistance,Contact Guard Assistance,Use of Upper Extremities Comments Mobility Comments He needs reminders for hand placement and to scoot foot out before sitting during sit- stand. No dizziness/light- headedness this visit. Encouraged pt to do deep breathing during mobility/gait . Pt using left LE to help right LE in/out of bed today to manage his pain. Gait Assessment Gait Gait Assistance Required: Standby Assistance,Contact Guard Assist Distance (Feet) 30 Able to Maintain Weight Bearing Status Yes During Gait Assistive Devices Assistive Device Gait Belt,Front Wheeled Walker Gait Deviations General Gait Pattern Antalgic Factors Limiting Gait Function Factors Limiting Gait Function Decreased Activity Tolerance, Decreased Strength,Limited Range of Motion,Pain,Poor Balance Comments Gait Comments He able to decrease the amount of UE support on FWW during gait, he reports less pain with weight bearing this afternoon Stair Climbing Assessment Comments Stair Climbing Comments no stairs at home PT-Balance Assessment Sitting Balance and Reactions Static Sitting Balance Ability Good Dynamic Sitting Balance Ability Good Standing Balance and Reactions Static Standing Balance Ability Good Dynamic Standing Balance Ability Fair Device Used FWW M5 PT-IP Objective Assessments Start: 08/21/22 10:22 Freq: NEEDED Status: Active Protocol: Document 08/21/22 09:34 DLM (Rec: 08/21/22 10:45 [facility] [id number]) Orientation Orientation/Cognition Level of Alertness Alert Orientation Name,Age,Birthday,Month,Date, Year,Day of Week,Place, Situation Language Function Ability Hard of Hearing Safety Awareness Understands Safety Issues Memory Description No Deficits Noted Comments his hearing aides are at home Gross Range of Motion Upper Extremity ROM Assessment Within Functional Limits Impairments hx of right shoulder soreness that he thinks is arthritic Lower Extremity ROM Assessment Right Impaired Impairments AROM 22-90, he reports inability to fully extend right knee before surgery Strength Upper Extremity Strength Assessment Within Functional Limits Lower Extremity Strength Assessment Right Impaired Hip needs assist to do SLR Knee extension seated 3-/5 Ankle DF 5/5 Comments Strength Comments pain right knee post-op interferes with functional strength Coordination Assessment Gross Coordination Gross Coordination WNL Sensation Assessment Sensation Gross Sensation WNL Comments Sensation Comments tio wrap and dressing on knee that was not removed for this assessment Muscle Tone Muscle Tone WNL Yes M6 PT-IP Treatment Start: 08/21/22 10:22 Freq: NEEDED Status: Active Protocol: Document 08/21/22 14:48 DLM (Rec: 08/21/22 15:27 DL [id number]) Physical Therapy Treatment Exercises Exercises Ankle Pumps,Quad Sets,Heel Slides,Straight Leg Raises, Short Arc Quads,Passive Knee Extension Hang,Seated Knee Flexion/Extension Knee ROM Measurement 20-90 Education Education Provided Weight Bearing Status,Post-Op Packet,Safety Equipment Issued Equipment Type and Company his FWW from home is in his room (davie from [employer]) Other Treatments Other Treatment Performed His Daughter is present and observed this treatment session M7 PT-IP Assessment and Plan Start: 08/21/22 10:22 Freq: NEEDED Status: Active Protocol: Document 08/21/22 14:48 DLM (Rec: 08/21/22 15:27 DLM [id number]) PT Summary Assessment and Plan Summary Impairments Pain,ROM,Strength,Balance,Bed Mobility,Transfers,Gait, Activity Tolerance Progress Towards Goals Slow Progress due to Pain,Slow Progress due to Activity Tolerance Assessment Summary He reports the pain is a little better this afternoon. He was able to make small gains in his mobility and gait this visit. His Daughter is present this visit. Pt continues to feel he is not safe to return home yet today. Notified his nurse. His activity tolerance continues to be low for discharge home but hope to progress to home tomorrow. Goals Bed Mobility Goal Independent Transfer Goal Independent,Front Wheeled Walker Gait Goal Independent,Front Wheel Walker Gait Distance 80 feet Days to Meet Goals 3 Treatment Plan Physical Therapy Treatment Plan Bed Mobility Training,Transfer Training,Gait Training, Therapeutic Exercise,Balance Retraining,Post Op Education, Discharge Planning,Hot or Cold Pack,Neuromuscular Re-ed Precautions Other Precautions monitor for light-headedness during mobility Weight Bearing Status Weight Bearing Status Weight Bear as Tolerated Recommendations To Nursing Amount of Assist Needed 1 Person Assist Discharge Recommendations PT Discharge Recommendations Home with Assistance, Outpatient PT Other Discharge Recommendations not ready to go home yet today , will see him again tomorrow Transportation Needs at Discharge Private Vehicle
--- NOTE | 2022-08-21 15:14 | PC.NURSE ---
BP this am 117/53, HR 54. PA contacted regarding multiple BP and HR meds. Losartan and hydrochlorothiazide held per JADON Ann.
[2022-08-21 20:00] VITALS: BP 107/47; PULSE 64; RESP 18; TEMP 36.4; O2SAT 95
[2022-08-21] MEDS: ATORVASTATIN 20 MG TABLET PO (20:09)
[2022-08-21 20:12] VITALS: BP 107/77; PULSE 64
[2022-08-21] MEDS: SODIUM CHLORIDE 0.9% FLUSH 10 ML IV (20:15)
[2022-08-22] MEDS: IBUPROFEN 400 MG TABLET PO ×4 (00:03→13:00)
[2022-08-22] MEDS: ACETAMINOPHEN 325 MG TABLET 650 MG PO ×3 (00:04→13:00)
[2022-08-22 00:05] VITALS: BP 119/61; PULSE 64; RESP 16; TEMP 36.6; O2SAT 96
[2022-08-22 04:38] VITALS: BP 114/45; PULSE 66; RESP 18; TEMP 36.6; O2SAT 94
[2022-08-22] MEDS: OXYCODONE IR 5 MG TABLET PO ×2 (04:38→09:20)
--- NOTE | 2022-08-22 08:13 | P.DS_ITS ---
History of Present Illness History of Present Illness Date Patient Seen: 08/22/22 Time Patient Seen: 08:13 Chief complaint: Right knee pain s/p right TKA Narrative: Patient is complaining of [id number] right knee pain. He notes his dizzinessAnd lightheadedness has resolved mostly. He is recently undergone a 40 lb weight loss after the of his , which was intentional. Overall he is feeling much better today and would like to be discharged home. Discharge Providers Provider Discharge Date: 08/22/22 Primary care physician: Bogdan Medrano MD Consults: 08/20/22 17:27 Consult to Discharge Planning Routine Comment: Consult to Physical Therapy Evaluate & Treat Comment: Physician Instructions: postop TKA protocol Discharge provider: Lexi Castro PA-C Summary Hospital Course Discharge Diagnosis: Right knee osteoarthriti; osteonecrosis of the medial femoral condyle Hospital Course: Operative Date/Time/Diagnoses Date of procedure: 08/20/22 Time of procedure: 16:36 Procedure & Clinicians Procedure: Right total knee replacement Same procedure as scheduled: Yes Indications: The patient has had progressively worsening right knee pain with radiographic changes consistent with arthritis. Non-operative management has failed and the patient has requested total knee replacement. The risks, benefits and altern atives to surgery were discussed with the patient prior to proceeding. Risks discussed included, but were not limited to, failure to relieve pain, stiffness, infection, nerve damage, deep venous thrombosis, pulmonary embolism, stroke, coma, heart attack, permanent paralysis and , as well as the potential need for eventual revision of the prosthetic. 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 Closure Type: primary Specimen(s): none sent Prosthetic devices, grafts, tissues, transplants, or devices: Implants used in this procedure were manufactured by the [employer] and [employer] and included the BCS II Journey total knee replacement with a size 8 right cobalt chromium femoral component, a size 7 right non porous tibial base plate, a 9 mm cross-linked polyethylene tibial insert and a 41 mm oval Angelique II patella. Applied: implant(s) Estimated Blood Loss (mL): 25 Blood products transfused: none Tourniquet time (min): 47 Status at Discharge Cognitive/behavioral status at discharge: at baseline, oriented Functional status at discharge: uses cane/walker Overall status at discharge: patient is progressing back to baseline Exam Vital Signs (past 8 hours): - 08/22/22 04:38 Temperature 97.9 F Pulse Rate 66 Respiratory Rate 18 Blood Pressure 114/45 L Pulse Oximetry 94 Oxygen Flow Rate 0 Oxygen Delivery Method CPAP Oxygen Flow Rate 0 Narrative Exam Narrative: Pleasant 76-year-old male, resting comfortably in bed, no acute distress. Right knee dressing is clean, dry, intact. Bilateral lower extremity: Motor functions are grossly intact, sensation is grossly intact to light touch, calves are soft and nontender palpation. 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 Nasal polyposis Obesity (BMI 30-39.9) Obstructive sleep apnea of adult (~2015) Silent ischemia Snoring Surgical History History of cardiac cath History of cataract removal with insertion of prosthetic lens History of coronary artery stent placement Hx of colectomy (2002) Hx of toe surgery (~2006) Status post arthroscopic partial lateral meniscectomy Social History marital status: details: with progressive supranuclear palsy household members: children and none lives independently: Yes caregiver/support person: Yes (he is the caregiver for his ) housing: house Smoking Status: Never smoker alcohol intake: current Discharge Assessment & Plan Assessment and Plan Assessment: Stable postoperative day 1 status post total knee replacement with moderate post hemorrhagic anemia. Pain is well controlled. -hypotension, improving symptomatically Plan of Treatment: -mobilize with PT. Weightbearing as tolerated with front wheel walker -We anticipate his anemia respond to normal dietary measures. -continue with multimodal pain management -aspirin 81 mg b.i.d. x6 weeks for DVT prophylaxis -Follow up in my office in 10-14 days. Outpatient physical therapy. -Medications have been called to the pharmacy for his pain medication. He has been instructed in the use of anti-inflammatories and Tylenol for additional pain relief and the use of low-dose aspirin for DVT prophylaxis. Discharge Plan Discharge Plan Patient Disposition: Home Discharge orders & Medications Discharge Orders: Discharge (Order); Ordered 08/22/22 Ordered By: Lexi Castro Prescriptions: New acetaminophen 325 mg Tablet 650 mg PO Q6HR Qty: 250 0RF aspirin 81 mg Tablet,Delayed Release (Dr/Ec) 81 mg PO BID Qty: 84 0RF oxycodone 5 mg Tablet 5 mg PO Q4H PRN (Reason: Pain, Moderate (4-6)) Qty: 40 0RF Continued carvedilol [Coreg] 25 MG tablet 25 mg PO BID Qty: 0 Fish Oil 1,000 mg PO QDAY Qty: 0 rosuvastatin [Crestor] 20 mg tablet 10 mg PO QDAY Qty: 0 losartan-hydrochlorothiazide 100-25 mg tablet 1 tab PO DAILY doxazosin 1 mg tablet 1 mg PO DAILY spironolactone 25 mg tablet 25 mg PO DAILY naproxen sodium [Aleve] 220 mg Capsule 440 mg PO BID PRN (Reason: Pain) Discontinued aspirin [Adult Low Dose Aspirin] 81 mg tablet,delayed release (DR/EC) 81 mg PO DAILY acetaminophen 500 mg Tablet 1,300 mg PO BID PRN (Reason: Pain) No Action (DME) [employer] AirSense 10 Auto See Rx Instructions .Route .MEDSUPPLY Rx Instructions: CPAP Min: 6 Max: 12 DME: Follow up/Referrals: Bogdan Medrano MD [Primary Care Provider] - Vinay Kulkarni MD [Physician] - As previously scheduled Diet/Activity/Treatments Diet: Diet as Tolerated and Regular Activity: You may bear weight as tolerated on your right knee. Cold/Heat Therapy: You may apply ice to your right knee for 15 minutes every hour as needed for pain control. Skin/Wound/Dressing Care Report to your healthcare provider any signs of infection, such as:: chills, fever, night sweats, increased pain, unusual drainage and unusual redness Dressing: You may remove the Epifanio wrap 3 days after surgery and shower normally with the deeper dressing in place. Leave the deeper dressing in place until your postoperative follow-up. If the central strip of the dressing becomes saturated with either water or blood, please call the office to have it evaluated. Visit Report/Discharge Packet Instructions: DI for Knee Replacement Stand Alone Forms: Surgery Discharge Discharge Data Primary Care Provider: Bogdan Medrano Attending Provider: Vinay Kulkarni Quality VTE Deep Vein Thrombosis/Pulmonary Embolism Present on Admission: No
[2022-08-22 08:51] LABS: Hematocrit 29.6 % (41-53); Hemoglobin 10.2 g/dL (13.5-17.5)
[2022-08-22 08:59] VITALS: BP 102/57; PULSE 64; RESP 16; TEMP 36.9; O2SAT 94
[2022-08-22] MEDS: SODIUM CHLORIDE 0.9% FLUSH 10 ML IV (09:10)
[2022-08-22] MEDS: DOCUSATE 100 MG CAPSULE PO (09:19)
[2022-08-22] MEDS: ASPIRIN EC 81 MG TABLET PO (09:19)
--- NOTE | 2022-08-22 11:14 | PT.IPTN ---
Current Diagnoses Unilateral primary osteoarthritis, right knee (08/20/22) Surgery Performed Operation Date: 08/20/22 15:15 Actual Procedures p Total Knee Arthroplasty(Right) - Vinay Kulkarni MD Physical Therapy Treatment Note M2 PT-IP Current Condition Start: 08/21/22 10:22 Freq: NEEDED Status: Active Protocol: Document 08/21/22 09:34 DLM (Rec: 08/21/22 10:45 DLM [id number]) Physical Therapy Current Condition Current Condition Evaluation Date 08/21/22 Treatment Diagnosis right TKA, impaired gait/ mobility Onset Date 08/20/22 M3 PT-IP Subjective Start: 08/21/22 10:22 Freq: NEEDED Status: Active Protocol: Document 08/22/22 11:14 DLM (Rec: 08/22/22 12:25 DLM [id number]) Subjective Physical Therapy Visit Type Type Treatment Note Visit Start Time 10:30 Visit Stop Time 11:14 Total Visit Minutes 44 Number of 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 He c/o changes in his vision where the wall looks like it is moving. Patient Goals Discharge home with his Daughters to help Therapy Pain Assessment Pain When Pain Assessed During Mobility Pain Present Pain Present Pain Reported Location Right Knee Intensity 5 Scale Used Numeric (0 - 10) Description Aching,Tender,Tightness,With Movement Pain Behaviors Facial Grimacing,Guarding, Wincing Pain Management Techniques Apply Cold,Elevation,Re- positioning,Timing of Activity with Medications M4 PT-IP Mobility and Gait Start: 08/21/22 10:22 Freq: NEEDED Status: Active Protocol: Document 08/22/22 11:14 DLM (Rec: 08/22/22 12:25 DLM [id number]) PT-Transfer Assessment Sit to and From Stand Sit to and from Stand Standby Assistance,Use of Upper Extremities Equipment Transfer Assistive Device Gait Belt,Front Wheeled Walker Transfers Transfer Destination Chair Transfer Technique Stand Step Pivot Transfer Ability Level of Assist Standby Assistance,Use of Upper Extremities Comments Mobility Comments Pt is up in the recliner and wants to stay up. Ice applied to knee at end of treatment. He needs verbal cues during sit-stand to manage right LE position and to control his descent. Gait Assessment Gait Gait Assistance Required: Standby Assistance Distance (Feet) 150 Able to Maintain Weight Bearing Status Yes During Gait Assistive Devices Assistive Device Gait Belt,Front Wheeled Walker Gait Deviations General Gait Pattern Antalgic Factors Limiting Gait Function Factors Limiting Gait Function Decreased Activity Tolerance, Decreased Strength,Limited Range of Motion,Pain,Poor Balance Comments Gait Comments He reports no light-headedness with gait. He progressed to gait in the carlson this visit. Stair Climbing Assessment Comments Stair Climbing Comments no stairs at home PT-Balance Assessment Sitting Balance and Reactions Static Sitting Balance Ability Good Dynamic Sitting Balance Ability Good Standing Balance and Reactions Static Standing Balance Ability Good Dynamic Standing Balance Ability Fair Device Used FWW M5 PT-IP Objective Assessments Start: 08/21/22 10:22 Freq: NEEDED Status: Active Protocol: Document 08/21/22 09:34 DLM (Rec: 08/21/22 10:45 DL [id number]) Orientation Orientation/Cognition Level of Alertness Alert Orientation Name,Age,Birthday,Month,Date, Year,Day of Week,Place, Situation Language Function Ability Hard of Hearing Safety Awareness Understands Safety Issues Memory Description No Deficits Noted Comments his hearing aides are at home Gross Range of Motion Upper Extremity ROM Assessment Within Functional Limits Impairments hx of right shoulder soreness that he thinks is arthritic Lower Extremity ROM Assessment Right Impaired Impairments AROM 22-90, he reports inability to fully extend right knee before surgery Strength Upper Extremity Strength Assessment Within Functional Limits Lower Extremity Strength Assessment Right Impaired Hip needs assist to do SLR Knee extension seated 3-/5 Ankle DF 5/5 Comments Strength Comments pain right knee post-op interferes with functional strength Coordination Assessment Gross Coordination Gross Coordination WNL Sensation Assessment Sensation Gross Sensation WNL Comments Sensation Comments tio wrap and dressing on knee that was not removed for this assessment Muscle Tone Muscle Tone WNL Yes M6 PT-IP Treatment Start: 08/21/22 10:22 Freq: NEEDED Status: Active Protocol: Document 08/22/22 11:14 DLM (Rec: 08/22/22 12:25 DLM [id number]) Physical Therapy Treatment Exercises Exercises Ankle Pumps,Quad Sets,Heel Slides,Straight Leg Raises, Short Arc Quads,Passive Knee Extension Hang,Seated Knee Flexion/Extension Knee ROM Measurement 15-85 Education Education Provided Weight Bearing Status,Post-Op Packet,Safety Equipment Issued Equipment Type and Company his FWW from home is in his room (davie from [employer]) Other Treatments Other Treatment Performed no family here this visit M7 PT-IP Assessment and Plan Start: 08/21/22 10:22 Freq: NEEDED Status: Active Protocol: Document 08/22/22 11:14 DLM (Rec: 08/22/22 12:25 DLM [id number]) PT Summary Assessment and Plan Summary Impairments Pain,ROM,Strength,Balance,Bed Mobility,Transfers,Gait, Activity Tolerance Progress Towards Goals Progressing Toward Goals Assessment Summary He reports improved pain management today with use of oxycodone. Unfortunately, he is complaining of vision changes that may be related to pain medications. His nurse and physician are aware. He was able to progress his distance of gait today. He tolerated his exercises well. He appears safe to discharge home with help from his Daughters today. He reports he has out-pt PT scheduled. Goals Bed Mobility Goal Independent Transfer Goal Independent,Front Wheeled Walker Gait Goal Independent,Front Wheel Walker Gait Distance 80 feet Days to Meet Goals 3 Frequency of Treatment Frequency Of Treatment Twice a Day Treatment Plan Physical Therapy Treatment Plan Bed Mobility Training,Transfer Training,Gait Training, Therapeutic Exercise,Balance Retraining,Post Op Education, Discharge Planning,Hot or Cold Pack,Neuromuscular Re-ed Precautions Other Precautions monitor for light-headedness during mobility Weight Bearing Status Weight Bearing Status Weight Bear as Tolerated Recommendations To Nursing Amount of Assist Needed 1 Person Assist Discharge Recommendations PT Discharge Recommendations Home with Assistance, Outpatient PT Other Discharge Recommendations cleared for home today Transportation Needs at Discharge Private Vehicle
[2022-08-22 11:56] VITALS: BP 101/48; PULSE 66; RESP 16; TEMP 35.6; O2SAT 97
--- NOTE | 2022-08-22 13:50 | PC.NURSE ---
Pt is A&Ox3, VSS, afebrile this a.m. Per nursing report pt with some hypotension on previous shift and soft blood pressures. Pt with SBP in low 100's this a.m. and per PA instructed to hold antihypertensive medications for SBP <120. Provided education to patient about blood pressures and taking his blood pressure at home prior to taking his routine blood pressure meds. He acknowledges understanding. This a.m. after breakfast pt reports that he has had some visual disturbances since yesterday (the background of what he looks at, the wall, the floor or blanket moves when he stares at an object)Physical therapist notified as well as . called back and informed that visual disturbances after anesthesia with narcotics commonly occur, and not to be concerned with neuro change. Patient denies dizziness with ambulation and while working with PT or up to bathroom today. Pt is cleared for discharge by PT. He is assisted to the bathroom by nurse and offered assistance to get dressed. He ambulates to the bathroom and he states he wanted to dress himself. RN reviewed instructions for dressing with patient and he verbalized understanding. Pt encouraged to call for assistance if needed. RN in room packing up bipap while patient in the bathroom, and heard patient fall. Pt found sitting up on his buttocks, and states he plopped to the floor on his butt He denied dizziness beforehand.and stated he grabbed handles of two different FWW's in the bathroom and lost his balance. He denied falling on knee or hitting head. He was assisted back to his feet and VSS. MD Kulkarni notified of incident with no new orders. Patient denied injury and there were no observed injuries. Daughter at bedside to assist patient with discharge and to be home with the patient. Reviewed medications, activity, s/sx of infection, complications as well as follow up care with patient. He acknowledges understanding and is escorted via w/ch by [employer]ING MACHINE TENDER to private vehicle with daughter for discharge home.
--- NOTE | 2022-08-22 15:55 | CM.IDA ---
Initial DCP Assessment Note Pt is a 76 yo male, resident of [place], now POD#2 from Rt knee surgery by Dr Kulkarni PCP: Bogdan Medrano Payer: [employer] [facility] [employer] ins. Reviewed chart, pt expected to have discharged 08.21.22; discussed in multidisciplinary rounds this morning. Therapy has cleared pt for return home w/family to assist and pt has planned for home, DC order from Ortho has already been initiated this morning. No barriers identified at this time to patient's safe discharge home w/family to assist; close outpatient f/u recommended. JOAN Leigh
== END 2022-08-22 13:08 | disposition home or self-care (01) ==
LOC: OR 12:32 → AC 17:39
PROVIDERS: Physician Assistant; PCP Student in an Organized Health Care Education/Training Program; Referring Provider Orthopaedic Surgery; Visit Provider Orthopaedic Surgery
PROC: 0SRC0JZ Replacement of Right Knee Joint with Synthetic Substitute, Open Approach (ICD-10-PCS; CPT 27447; principal; 2022-08-20 15:15)
DX: M17.11 Unilateral primary osteoarthritis, right knee (principal); M87.051 Idiopathic aseptic necrosis of right femur; I10 Essential (primary) hypertension; G47.30 Sleep apnea, unspecified; I25.10 Atherosclerotic heart disease of native coronary artery without angina pectoris; E66.9 Obesity, unspecified; Z68.33 Body mass index [BMI] 33.0-33.9, adult
CPT/HCPCS: 27447; 36415; 73560; 85014; 85018; 97110; 97116; 97530; C1776; C1713; C9290; J0171; J0690; J2250; J2270; J2405; J2704; J3010

== ENCOUNTER → 2023-03-17 11:33 | Outpatient (CLI) | payer MEDICARE, OTHER, SELFPAY ==
[2023-03-03 13:33] VITALS: BMI 32.3
[2023-03-17 12:37] LABS: Add Manual Diff / Slide Review NO; Basophils Absolute Auto 0 /uL (0-100); Basophils Percent Auto 0.5 % (0-2); Eosinophils Absolute Auto 300 /uL (0-450); Eosinophils Percent Auto 4.4 % (2-4); Hematocrit 37.7 % (41-53); Hemoglobin 12.8 g/dL (13.5-17.5); Lymphocytes Absolute Auto 1700 /uL (1100-4500); Lymphocytes Percent Auto 23.6 % (25-40); Monocytes Absolute Auto 800 /uL (0-900); Monocytes Percent Auto 11.3 % (3-14); Neutrophils Absolute Auto 4400 /uL (1500-7000); Neutrophils Percent Auto 60.2 % (50-75); Platelet Count 197 X10^3/uL (150-400); Red Blood Cell Count 4.14 X10^6/uL (4.5-5.9); Red Cell Distribution Width 13.9 % (11.6-14.8); White Blood Cell Count 7.4 X10^3/uL (4.5-11.0)
[2023-03-17 12:58] LABS: RBC Urine None Seen (0-5/HPF); WBC Urine 1-5/HPF (0-5/HPF)
[2023-03-17 12:59] LABS: Amorphous Sediment Urine 1+; Bacteria Urine Occasional (0-1); Culture Indicated Urine Cult Not Indicated; Mucus Urine 2+ (Negative); Squamous Epithelial Cell Urine 0-1 /HPF (0-5/HPF)
[2023-03-17 13:04] LABS: Alanine Aminotransferase 17 IU/L (<50); Albumin 4.4 g/dL (3.5-5.0); Albumin Globulin Ratio 1.8 (1.0-2.8); Alkaline Phosphatase 66 U/L (38-126); Aspartate Aminotransferase 21 IU/L (17-59); BUN Creatinine Ratio 27.7 (6-22); Bilirubin Total 0.8 mg/dL (0.2-1.3); Blood Urea Nitrogen 36 mg/dL (9-20); Calcium 9.1 mg/dL (8.4-10.2); Carbon Dioxide 25 mmol/L (22-32); Chloride 101 mmol/L (98-107); Cholesterol 127 mg/dL (140-199); Estimated Glomerular Filt Rate 56 mL/min (>60); Globulin 2.4 g/dL (1.7-4.1); Glucose 98 mg/dL (80-110); HDL Cholesterol 46 mg/dL (40-60); HEMOLYSIS < 15 (0-50); LDL Cholesterol Calculated 51 mg/dL (<100); Potassium 4.7 mmol/L (3.4-5.1); Sodium 135 mmol/L (137-145); Total Protein 6.8 g/dL (6.3-8.2); Triglycerides 148 mg/dL (35-150)
== END ==
PROVIDERS: PCP Pediatrics; Referring Provider Pediatrics; Visit Provider Pediatrics
DX: E78.5 Hyperlipidemia, unspecified (principal); I10 Essential (primary) hypertension; I25.10 Atherosclerotic heart disease of native coronary artery without angina pectoris
CPT/HCPCS: 36415; 80053; 80061; 81015; 85025

== ENCOUNTER → 2023-04-13 08:06 | Outpatient (CLI) | payer MEDICARE, OTHER, SELFPAY ==
[2023-03-03 13:33] VITALS: BMI 32.3
--- NOTE | 2023-04-13 08:07 | DI.US.S_ITS ---
PROCEDURE: US SOFT TISSUE HEAD AND NECK INDICATIONS: RIGHT SIDE NECK MASS TECHNIQUE: Real-time scanning was performed of the neck region of interest, with image documentation. COMPARISON: None. FINDINGS: At the patient indicated area of clinical concern, the soft tissues of the right neck near the submandibular region, an ovoid/reniform structure is present measuring 1.1 x 0.8 x 1.2 cm, likely a lymph node. An expected echogenic central region/hilum is present. IMPRESSION: Corresponding to the patient indicated area of concern, a structure is present likely representing a prominent lymph node measuring 0.8 cm short axis. This is a nonspecific finding, clinical correlation is recommended. Repeat ultrasound or CT of the neck could be obtained as clinically indicated. Dictated by: Reggie Carias M.D. on 04/13/2023 at 12:49 Approved by: Reggie Carias M.D. on 04/13/2023 at 12:51
== END ==
PROVIDERS: PCP Pediatrics; Referring Provider Pediatrics; Visit Provider Pediatrics
DX: R22.1 Localized swelling, mass and lump, neck (principal)
CPT/HCPCS: 76536

== ENCOUNTER → 2023-05-27 10:28 | Outpatient (CLI) | payer MEDICARE, OTHER, SELFPAY ==
[2023-03-03 13:33] VITALS: BMI 32.3
[2023-05-27 12:39] LABS: Add Manual Diff / Slide Review NO; Basophils Absolute Auto 0 /uL (0-100); Basophils Percent Auto 0.5 % (0-2); Eosinophils Absolute Auto 200 /uL (0-450); Eosinophils Percent Auto 3.1 % (2-4); Hemoglobin 12.4 g/dL (13.5-17.5); Lymphocytes Absolute Auto 1400 /uL (1100-4500); Lymphocytes Percent Auto 22.9 % (25-40); Mean Corpuscular HGB Conc 34.4 % (30-36); Mean Corpuscular Hemoglobin 31.7 PG (26-34); Mean Corpuscular Volume 92.2 fL (80-100); Monocytes Absolute Auto 500 /uL (0-900); Monocytes Percent Auto 8.7 % (3-14); Neutrophils Absolute Auto 3900 /uL (1500-7000); Neutrophils Percent Auto 64.8 % (50-75); Platelet Count 180 X10^3/uL (150-400); Red Cell Distribution Width 12.9 % (11.6-14.8)
[2023-05-27 13:09] LABS: Alanine Aminotransferase 19 IU/L (<50); Albumin 4.1 g/dL (3.5-5.0); Albumin Globulin Ratio 1.5 (1.0-2.8); Alkaline Phosphatase 55 U/L (38-126); Aspartate Aminotransferase 24 IU/L (17-59); BUN Creatinine Ratio 29.2 (6-22); Bilirubin Total 0.6 mg/dL (0.2-1.3); Blood Urea Nitrogen 31 mg/dL (9-20); Calcium 9.1 mg/dL (8.4-10.2); Carbon Dioxide 23 mmol/L (22-32); Chloride 104 mmol/L (98-107); Cholesterol 122 mg/dL (140-199); Estimated Glomerular Filt Rate > 60 mL/min (>60); Globulin 2.7 g/dL (1.7-4.1); Glucose 96 mg/dL (80-110); HDL Cholesterol 43 mg/dL (40-60); HEMOLYSIS < 15 (0-50); LDL Cholesterol Calculated 63 mg/dL (<100); Potassium 4.5 mmol/L (3.4-5.1); Sodium 136 mmol/L (137-145); Total Protein 6.8 g/dL (6.3-8.2); Triglycerides 79 mg/dL (35-150)
== END ==
PROVIDERS: PCP Pediatrics; Referring Provider Internal Medicine Cardiovascular Disease; Visit Provider Internal Medicine Cardiovascular Disease
DX: E78.2 Mixed hyperlipidemia (principal); Z79.899 Other long term (current) drug therapy; I10 Essential (primary) hypertension; I48.0 Paroxysmal atrial fibrillation
CPT/HCPCS: 36415; 80053; 80061; 85025

== ENCOUNTER 2024-09-23 08:25 | Inpatient (IN) | payer MEDICARE, OTHER, SELFPAY ==
[2023-03-03 13:33] VITALS: BMI 32.3
[2024-09-23] VITALS (31 sets, daily range): BP systolic 138–199; BP diastolic 61–101; PULSE 60–81; RESP 16–24; TEMP 36.9–37.4; O2SAT 91–96; BMI 31.4
--- NOTE | 2024-09-23 | DI.NM.S_ITS ---
PROCEDURE: NM HIDA NO EJECTION FRACTION RADIOPHARMACEUTICAL: 5.3 mCi Tc-99m mebrofenin IV. INDICATIONS: concern for acalculous cholecystitis TECHNIQUE: Following intravenous administration of Tc-99m mebrofenin, sequential anterior abdominal images were obtained through at least 90 minutes plus a 4 hour delayed image. COMPARISON: None. FINDINGS: There is normal tracer uptake and excretion by the liver. There is normal visualization of intrahepatic ducts, common bile duct. The gallbladder is not visualized. There is normal tracer excretion into duodenum. Images were taking up to 90 minutes and then a 4 hour delayed image was taken. IMPRESSION: Nonvisualization of the gallbladder, concerning for acute cholecystitis. Dictated by: Neftaly Carlson M.D. on 09/23/2024 at 16:53 Approved by: Neftaly Carlson M.D. on 09/23/2024 at 16:59
--- NOTE | 2024-09-23 08:31 | EKG_ITS ---
[address] [address] Test Date: 2024-09-23 Pat Name: Jayden Reyna Department: Room: Gender: Male Offset Platemaker: MORELIA : 1945 Requested By: Order Number: [id number] Reading MD: Reece Hoffmann Measurements Intervals [place] Rate: 74 P: 35 [place]: 180 QRS: -7 QRSD: 92 T: -3 QT: 374 QTc: 415 Interpretive Statements Normal sinus rhythm Inferior infarct , age undetermined Electronically Signed On 09-23-2024 18:52:29 PST by Reece Hoffmann
--- NOTE | 2024-09-23 08:35 | ED_ITS ---
HPI - General Adult General Chief complaint: Abdominal Pain Stated complaint: R SIDE ABD PAIN T-3 Time Seen by Provider: 09/23/24 08:30 History of Present Illness HPI narrative: 79-year-old male complains of 3 days duration of right middle/flank area discomfort, worse with deep inspiration, no cough or shortness of breath, no fevers or chills, no injury or new activities, no rash or skin changes. He still has his appendix and gallbladder. History of kidney stones but this feels different. History of diverticulitis status post remote left-sided partial colectomy. No nausea or vomiting. No diaphoresis. No painful or frequent urination, no change in urine. He felt ?rumbling? in his stomach 2 days ago, and took an old dose of Lomotil, last bowel movement yesterday without black or red color, not loose, no change in caliber. [place] of atrial fibrillation, takes Eliquis anticoagulation, denies pain to legs, denies leg swelling. Related Data Home Medications Medication Instructions Recorded Confirmed losartan 100 125 tab PO DAILY 11/21/21 09/23/24 mg-hydrochlorothiazide 25 mg tablet rosuvastatin 20 mg tablet (Crestor) 10 mg PO QDAY #0 tabs 11/21/21 09/23/24 spironolactone 25 mg tablet 25 mg PO DAILY 11/21/21 09/23/24 ResMed AirSense 10 Auto 01/01/22 09/23/24 apixaban 5 mg tablet (Eliquis) 5 mg PO BID 07/05/24 09/23/24 metoprolol succinate 25 mg 25 mg PO DAILY 09/23/24 09/23/24 tablet,extended release 24 hr Previous Rx's Medication Instructions Recorded aspirin 81 mg tablet,delayed 81 mg PO BID #84 tabs 08/21/22 release Allergies Allergy/AdvReac Type Severity Reaction Status Date / Time Sulfa (Sulfonamide AdvReac Severe It felt Verified 09/22/24 10:44 Antibiotics) like they [SULFA (SULFONAMIDE injected ANTIBIOTICS)] acid in my system - IV amlodipine AdvReac Intermediate Rash Verified 09/22/24 10:44 celecoxib [From CELEBREX] AdvReac Mild Made me Verified 09/22/24 10:44 feel really weird hydrocodone AdvReac Mild Nausea Verified 09/22/24 10:44 Review of Systems Review of Systems Narrative: see HPI Patient History Medical History Enlarged lymph node in neck MIROSLAVA (obstructive sleep apnea) Silent ischemia 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 (BMI 30-39.9) 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 Snoring Excessive daytime sleepiness Nasal polyposis GERD (gastroesophageal reflux disease) Diverticular disease of large intestine Hyperlipidemia CAD (coronary artery disease) (2004) 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 Obstructive sleep apnea of adult (~2016) Surgical History History of total right knee replacement History of cardiac cath Hx of toe surgery (~2006) Status post arthroscopic partial lateral meniscectomy Hx of colectomy (2002) History of coronary artery stent placement History of cataract removal with insertion of prosthetic lens Social History marital status: details: with progressive supranuclear palsy household members: spouse lives independently: Yes caregiver/support person: Yes (he is the caregiver for his ) housing: house Smoking Status: Never smoker alcohol intake: current Smoking Status: Never smoker alcohol intake frequency: a few times a month Exam Narrative Exam Narrative: GENERAL: Well-developed patient, in mild distress. HEAD: Atraumatic. Normocephalic. EYES: Pupils equal round and reactive. Extraocular motions intact. No scleral icterus. No injection or drainage. ENT: Nose without bleeding, purulent drainage. Throat without erythema, tonsillar hypertrophy or exudate. Airway patent. NECK: Trachea midline. Non tender CARDIOVASCULAR: Regular rate and rhythm without murmurs, gallops, or rubs. RESPIRATORY: Clear to auscultation. Breath sounds equal bilaterally. No wheezes, rales, or rhonchi. GASTROINTESTINAL: Abdomen soft, some tenderness right middle quadrant area right periumbilical, no skin rashes, no hyperesthesia on light touch to the skin, nondistended, unremarkable bowel tones without rushes or tinkles, no obvious ventral hernias EXTREMITIES: No edema or joint tenderness. BACK: Nontender without deformity or crepitance. No flank tenderness. NEURO: AOx3. Motor functions grossly nonfocal SKIN: No rash or erythema of visible areas Initial Vital Signs Initial Vital Signs: Vital Signs Pulse Rate 79 09/23/24 08:31 Pulse Oximetry 93 09/23/24 08:31 Course Orders Ordered: ED Orders 09/23/24 14:30 Blood Culture Stat Aspirin (Aspirin Ec 81 Mg Tablet) 81 mg PO BID JARRELL Carvedilol (Carvedilol 12.5 Mg Tablet) 12.5 mg PO BID JARRELL Heparin Sodium (Porcine) (Heparin 5,000 Unit/Ml Vial) 5,000 unit SUBCUT BID JARRELL Hydromorphone HCl (Hydromorphone 0.5 Mg Inj) 0.5 mg IV Q2H PRN PRN Reason: Pain, Severe (7-10) Dextrose/Sodium Chloride (Dextrose 5%-0.9% Ns) 1,000 mls @ 100 mls/hr IV CONT JARRELL Piperacillin Sod/Tazobactam (Sod 3.375 gm/ Sodium Chloride) 100 mls @ 25 mls/hr IV Q8H JARRELL Naloxone HCl (Naloxone 0.4 Mg/Ml Vial) 0.2 mg IV Q2MIN PRN PRN Reason: Opiate Reversal Ondansetron HCl (Ondansetron 4 Mg/2 Ml Inj) 4 mg IV Q8HR PRN PRN Reason: Nausea And Vomiting Discontinued Medications Aspirin (Aspirin Ec 81 Mg Tablet) 81 mg PO DAILY [facility] Hydromorphone HCl (Hydromorphone 0.5 Mg Inj) 0.5 mg IV NOW ONE Stop: 09/23/24 12:15 Last Admin: 09/23/24 14:05 Dose: 0.5 mg Documented By: MARI Hydromorphone HCl (Hydromorphone 0.5 Mg Inj) 0.5 mg IV NOW ONE Stop: 09/23/24 16:31 Last Admin: 09/23/24 16:35 Dose: 0.5 mg Documented By: MARI Sodium Chloride (Normal Saline 0.9%) 1,000 mls @ 1,000 mls/hr IV BOLUS ONE Stop: 09/23/24 09:57 Last Infusion: 09/23/24 10:15 Dose: Infused Documented By: Admin: 09/23/24 09:02 Dose: 1,000 mls/hr Documented By: MARI Piperacillin Sod/Tazobactam (Sod 4.5 gm/ Sodium Chloride) 100 mls @ 200 mls/hr IV NOW ONE Stop: 09/23/24 11:46 Last Infusion: 09/23/24 15:03 Dose: Infused Documented By: Admin: 09/23/24 14:05 Dose: 200 mls/hr Documented By: MARI Piperacillin Sod/Tazobactam (Sod 3.375 gm/ Sodium Chloride) 100 mls @ 25 mls/hr IV Q8H [facility] Vital Signs Vital signs: Vital Signs - 8 hr 09/23/24 11:30 09/23/24 11:30 09/23/24 12:00 Pulse Rate 68 Respiratory Rate 17 Blood Pressure 171/74 H 176/77 H Pulse Oximetry 94 09/23/24 12:00 09/23/24 14:08 09/23/24 14:08 Pulse Rate 69 70 Respiratory Rate 24 20 Blood Pressure 177/77 H Pulse Oximetry 94 09/23/24 14:30 09/23/24 14:31 09/23/24 14:31 Pulse Rate 71 71 Respiratory Rate 22 22 Blood Pressure 164/68 H Pulse Oximetry 93 93 09/23/24 15:00 09/23/24 15:00 09/23/24 15:30 Pulse Rate 71 Respiratory Rate 24 Blood Pressure 163/76 H 162/71 H Pulse Oximetry 93 09/23/24 15:30 09/23/24 16:00 09/23/24 16:00 Pulse Rate 67 68 Respiratory Rate 19 19 Blood Pressure 154/69 H Pulse Oximetry 93 93 09/23/24 16:30 09/23/24 16:31 09/23/24 16:31 Pulse Rate 73 60 Respiratory Rate Blood Pressure 199/85 H Pulse Oximetry 94 94 09/23/24 17:00 09/23/24 17:01 09/23/24 17:01 Pulse Rate 73 73 Respiratory Rate 24 Blood Pressure 155/67 H Pulse Oximetry 91 93 Medical Decision Making Lab Data Lab results reviewed: Yes I reviewed the patient's lab results. Lab results narrative: White blood cell count 04494, hemoglobin normal, platelets adequate. Basic metabolic panel unremarkable. 09/23/24 08:34 09/23/24 08:34 Labs: Lab Results 09/23/24 Range/Units 08:34 WBC 22.6 H (4.5-11.0) X10^3/uL RBC 4.82 (4.5-5.9) X10^6/uL Hgb 14.9 (13.5-17.5) g/dL Hct 44.7 (41-53) % MCV 92.8 (80-100) fL MCH 31.0 (26-34) PG MCHC 33.4 (30-36) % RDW 13.1 (11.6-14.8) % Plt Count 187 (150-400) X10^3/uL Neut % (Auto) 85.9 H (50-75) % Lymph % (Auto) 4.9 L (25-40) % Mineral % (Auto) 8.9 (3-14) % Eos % (Auto) 0.1 L (2-4) % Baso % (Auto) 0.2 (0-2) % Neut # (Auto) 20378 H (3208-2241) /uL Lymph # (Auto) 1100 (2435-0024) /uL Mineral # (Auto) 2000 H (0-900) /uL Eos # (Auto) 0 (0-450) /uL Baso # (Auto) 0 (0-100) /uL Sodium 130 L (137-145) mmol/L Potassium 4.0 (3.4-5.1) mmol/L Chloride 98 (98-107) mmol/L Carbon Dioxide 22 (22-32) mmol/L BUN 21 H (9-20) mg/dL Creatinine 1.16 (0.66-1.25) mg/dL Estimated GFR > 60 (>60) mL/min BUN/Creatinine Ratio 18.1 (6-22) Glucose 186 H (80-110) mg/dL Lactate 1.8 (0.7-2.1) mmol/L Calcium 9.2 (8.4-10.2) mg/dL Total Bilirubin 1.1 (0.2-1.3) mg/dL AST 31 (17-59) IU/L ALT 26 (<50) IU/L Alkaline Phosphatase 54 (38-126) U/L Troponin I < 0.012 (0.01-0.034) ng/mL Total Protein 7.5 (6.3-8.2) g/dL Albumin 4.5 (3.5-5.0) g/dL Globulin 3.0 (1.7-4.1) g/dL Albumin/Globulin Ratio 1.5 (1.0-2.8) Lipase 60 (23-300) U/L Urine Dip Bedside Urine Glucose Negative Bedside Urine Bilirubin - Negative Bedside Urine Ketone - Negative Urine Specific Maupin 1.015 Bedside Urine Occult Blood - Negative Bedside Urine pH 6.0 Bedside Urine Protein - Negative Bedside Urine Urobilinogen - Negative Bedside Urine Nitrite - Negative Bedside Urine Leukocytes - Negative Esterase Point of care testing: Urine Dip Bedside Urine Glucose Negative Bedside Urine Bilirubin - Negative Bedside Urine Ketone - Negative Urine Specific Maupin 1.015 Bedside Urine Occult Blood - Negative Bedside Urine pH 6.0 Bedside Urine Protein - Negative Bedside Urine Urobilinogen - Negative Bedside Urine Nitrite - Negative Bedside Urine Leukocytes - Negative Esterase Imaging Data CT scan - abdomen/pelvis: Radiologist's Impression: [address] [address] [address] Scan Report Signed Patient: Jayden Reyna MR#: [id number] : 1945 Acct:[id number] Age/Sex: 79 / M Date of Service: 09/23/24 Loc: ED Accession Number: [id number] Procedure: CT abdomen pelvis w con Ordering Provider: Marcelo Looney MD PROCEDURE: CT ABDOMEN PELVIS W CON INDICATIONS: R sided abd pain, hx diverticulitis, WBC 22k TECHNIQUE: After the administration of intravenous contrast, axial sections acquired from the lung bases to the pubic symphysis. Coronal and sagittal reformats were performed. For radiation dose reduction, the following was used: automated exposure control, adjustment of mA and/or kV according to patient size. COMPARISON: None. FINDINGS: Image quality: Diagnostic. Lower Chest: Severe coronary artery calcifications. Patchy bibasilar atelectasis, right greater than left, with minimal right pleural effusion. ABDOMEN: Liver: No solid mass. Gallbladder: Highly suspicious for acute cholecystitis. Distended gallbladder with wall thickening and inflammatory change in the adjacent fat. Biliary ducts: No biliary dilation. Pancreas: No ductal dilation. Spleen: Size is within normal limits. Adrenal Glands: No adrenal nodules. Kidneys and Ureters: No hydronephrosis. No solid mass. No complex renal cystic lesion which requires follow up. Stomach and Bowel: Normal colonic caliber, without significant wall thickening. Normal appendix. Peritoneum: No abnormal intraperitoneal fluid. No free air. Ventral Wall: No significant ventral hernia. Abdominal Nodes: No retroperitoneal or mesenteric adenopathy by size criteria. Vessels: Aorta and inferior vena cava are normal in size. PELVIS: Pelvic Organs: Unremarkable. Bladder: No bladder wall thickening, accounting for underdistention. Pelvic Nodes: No enlarged lymph nodes. Miscellaneous: Small fat containing inguinal hernias are seen. Bones: No aggressive osseous abnormality. Lumbar degenerative change with high-grade canal stenosis at L4-L5. IMPRESSION: 1. Findings are highly suspicious for acute cholecystitis. 2. Severe coronary artery calcifications. 3. Minimal bibasilar atelectasis and right pleural fluid. 4. Incidental note made of high-grade canal stenosis at L4-L5. Dictated by: Ronny Orellana M.D. on 09/23/2024 at 11:02 Approved by: Ronny Orellana M.D. on 09/23/2024 at 11:06 ECG Data Attestation: I personally reviewed and interpreted this ECG as follows: Interpretation: Normal sinus rhythm with rate of 74, no obvious ST segment elevation or depression changes. T-wave inversions noted lead 3, upright in lead 2. SC 180, QRS 92, QTC 415. MDM Narrative Medical decision making narrative: 79-year-old male with 3 days duration atraumatic right-sided middle quadrant area discomfort and also in the right mid axillary line, history of kidney stones but this feels different, history of diverticulitis status post left partial colectomy remote, still has appendix and gallbladder, afebrile on triage, sirs screen negative, some tenderness right middle quadrant without guarding or rebound. Labs pending. DDx consider colitis, diverticulitis, bowel obstruction, gallbladder disease, choledocholithiasis, PUD, pancreatitis, UTI/pyelonephritis, ureteral stone, constipation, right lower lobe pneumonia, mesenteric adenitis, early cutaneous zoster, occult peritoneal hemorrhage, other. Anticipate CT abdomen and pelvis imaging, with IV contrast if GFR favorable, otherwise noncontrast. Patient agrees. He declines pain medication at this time when offered. White blood cell count 92756, GFR favorable, liver functions and lipase normal, urine dip pending, lactate added and was normal, troponin negative. CT abdomen and pelvis with IV contrast imaging ordered. IV fluid bolus. Keep NPO. CT abdomen and pelvis with IV contrast. Impressions: ?Findings are highly suspicious for acute cholecystitis. Severe coronary artery calcifications. Minimal bibasilar atelectasis and right pleural fluid. Incidental note made of high-grade canal stenosis L4-L5.? See radiology report General surgery to be paged for consultation. Awaiting call back from surgery Dr. Loo. Blood cultures requested, NKDA, IV Zosyn initiated. Keep NPO. 1150, case discussed with general surgery Dr. Loo, patient takes Eliquis which will need to be held, admit to hospitalist service, who will consult and perform interval cholecystectomy. He would like to obtain HIDA scan, placed order. We will page hospitalist. 1155, case discussed with hospitalist Dr. Hoffmann, await results of HIDA scan anticipate admission, hold Eliquis noted for later cholecystectomy anticipated HIDA scan non visualization, delayed images to be done HIDA scan delayed images, gallbladder still not visualized 1700, case discussed again with surgery Dr. Loo, stated that he spoke to hospitalist Dr. Hoffmann who will admit patient, he will consult, likely surgery after Eliquis has been held couple of days Admit to hospitalist service Dr. Galdamez as planned Critical Care Time Critical Care Time Critical Care Time: Yes Total Critical Care Time: 35 Attestation: The high probability of a clinically significant, sudden or life threatening deterioration of the [abdominal, gastrointestinal] system(s) required my full and direct attention, intervention and personal management. The aggregate critical care time was [35] minutes. This time is in addition to time spent performing reported procedures but includes the following: [x] Data Review and interpretation [x] Patient assessment and monitoring of vital signs [x] Documentation [x] Medication orders and management Discharge Plan Departure Patient Disposition: Admitted As Inpatient Clinical Impression: Acute cholecystitis, Chronic anticoagulation Admit Date/Time: 09/23/24 17:18 Admit Provider: Reece Hoffmann
[2024-09-23 08:43] LABS: Add Manual Diff / Slide Review NO; Basophils Absolute Auto 0 /uL (0-100); Basophils Percent Auto 0.2 % (0-2); Eosinophils Absolute Auto 0 /uL (0-450); Eosinophils Percent Auto 0.1 % (2-4); Hematocrit 44.7 % (41-53); Hemoglobin 14.9 g/dL (13.5-17.5); Lymphocytes Absolute Auto 1100 /uL (1100-4500); Lymphocytes Percent Auto 4.9 % (25-40); Mean Corpuscular HGB Conc 33.4 % (30-36); Mean Corpuscular Volume 92.8 fL (80-100); Monocytes Absolute Auto 2000 /uL (0-900); Monocytes Percent Auto 8.9 % (3-14); Neutrophils Absolute Auto 19400 /uL (1500-7000); Neutrophils Percent Auto 85.9 % (50-75); Platelet Count 187 X10^3/uL (150-400); Red Blood Cell Count 4.82 X10^6/uL (4.5-5.9); Red Cell Distribution Width 13.1 % (11.6-14.8); White Blood Cell Count 22.6 X10^3/uL (4.5-11.0)
[2024-09-23 08:57] LABS: Alanine Aminotransferase 26 IU/L (<50); Albumin 4.5 g/dL (3.5-5.0); Albumin Globulin Ratio 1.5 (1.0-2.8); Alkaline Phosphatase 54 U/L (38-126); Aspartate Aminotransferase 31 IU/L (17-59); BUN Creatinine Ratio 18.1 (6-22); Bilirubin Total 1.1 mg/dL (0.2-1.3); Blood Urea Nitrogen 21 mg/dL (9-20); Calcium 9.2 mg/dL (8.4-10.2); Carbon Dioxide 22 mmol/L (22-32); Chloride 98 mmol/L (98-107); Estimated Glomerular Filt Rate > 60 mL/min (>60); Glucose 186 mg/dL (80-110); HEMOLYSIS < 15 (0-50); Lipase 60 U/L (23-300); Sodium 130 mmol/L (137-145); Total Protein 7.5 g/dL (6.3-8.2)
[2024-09-23] MEDS: SODIUM CHLORIDE 0.9% 1,000 ML 1000 ML IV (09:02)
--- NOTE | 2024-09-23 09:07 | DI.CT.S_ITS ---
PROCEDURE: CT ABDOMEN PELVIS W CON INDICATIONS: R sided abd pain, hx diverticulitis, WBC 22k TECHNIQUE: After the administration of intravenous contrast, axial sections acquired from the lung bases to the pubic symphysis. Coronal and sagittal reformats were performed. For radiation dose reduction, the following was used: automated exposure control, adjustment of mA and/or kV according to patient size. COMPARISON: None. FINDINGS: Image quality: Diagnostic. Lower Chest: Severe coronary artery calcifications. Patchy bibasilar atelectasis, right greater than left, with minimal right pleural effusion. ABDOMEN: Liver: No solid mass. Gallbladder: Highly suspicious for acute cholecystitis. Distended gallbladder with wall thickening and inflammatory change in the adjacent fat. Biliary ducts: No biliary dilation. Pancreas: No ductal dilation. Spleen: Size is within normal limits. Adrenal Glands: No adrenal nodules. Kidneys and Ureters: No hydronephrosis. No solid mass. No complex renal cystic lesion which requires follow up. Stomach and Bowel: Normal colonic caliber, without significant wall thickening. Normal appendix. Peritoneum: No abnormal intraperitoneal fluid. No free air. Ventral Wall: No significant ventral hernia. Abdominal Nodes: No retroperitoneal or mesenteric adenopathy by size criteria. Vessels: Aorta and inferior vena cava are normal in size. PELVIS: Pelvic Organs: Unremarkable. Bladder: No bladder wall thickening, accounting for underdistention. Pelvic Nodes: No enlarged lymph nodes. Miscellaneous: Small fat containing inguinal hernias are seen. Bones: No aggressive osseous abnormality. Lumbar degenerative change with high-grade canal stenosis at L4-L5. IMPRESSION: 1. Findings are highly suspicious for acute cholecystitis. 2. Severe coronary artery calcifications. 3. Minimal bibasilar atelectasis and right pleural fluid. 4. Incidental note made of high-grade canal stenosis at L4-L5. Dictated by: Ronny Orellana M.D. on 09/23/2024 at 11:02 Approved by: Ronny Orellana M.D. on 09/23/2024 at 11:06
[2024-09-23 09:09] LABS: Troponin I < 0.012 ng/mL (0.01-0.034)
[2024-09-23 09:17] LABS: Lactate (Lactic Acid) 1.8 mmol/L (0.7-2.1)
--- NOTE | 2024-09-23 12:02 | PM.CN ---
History of Present Illness Consult details Date Patient Seen: 09/23/24 Time Patient Seen: 12:02 Chief complaint: R SIDE ABD PAIN T-3 Reason for consult: Possible acalculous cholecystitis Narrative: This is an 79-year-old white male, coronary artery disease atrial fibrillation on Eliquis, who has had 3 days of right-sided abdominal pain. Presented a CT scan showed inflammation around the gallbladder but [place] [address]. Meds Home Medications and Allergies Home Medications Medication Instructions Recorded Confirmed Type losartan 100 1 tab PO DAILY 11/21/21 09/22/24 History mg-hydrochlorothiazide 25 mg tablet rosuvastatin 20 mg tablet (Crestor) 10 mg PO QDAY #0 tabs 11/21/21 09/22/24 History spironolactone 25 mg tablet 25 mg PO DAILY 11/21/21 09/22/24 History ResMed AirSense 10 Auto 01/01/22 09/22/24 History aspirin 81 mg tablet,delayed 81 mg PO BID #84 tabs 08/21/22 09/22/24 Rx release carvedilol 25 mg tablet (Coreg) 12.5 mg PO BID #0 tabs 03/17/23 09/22/24 History apixaban 5 mg tablet (Eliquis) 5 mg PO BID 07/05/24 09/22/24 History Allergies Allergy/AdvReac Type Severity Reaction Status Date / Time Sulfa (Sulfonamide AdvReac Severe It felt Verified 09/22/24 10:44 Antibiotics) like they [SULFA (SULFONAMIDE injected ANTIBIOTICS)] acid in my system - IV amlodipine AdvReac Intermediate Rash Verified 09/22/24 10:44 celecoxib [From CELEBREX] AdvReac Mild Made me Verified 09/22/24 10:44 feel really weird hydrocodone AdvReac Mild Nausea Verified 09/22/24 10:44 Review of Systems Review of Systems ROS: Yes All systems reviewed with the patient and are negative except as otherwise documented Exam Vital Signs (past 8 hours): - 09/23/24 08:33 Temperature 98.5 F Pulse Rate 74 Respiratory Rate 16 Blood Pressure 172/72 H Pulse Oximetry 92 Oxygen Delivery Method Room Air Oxygen Delivery Method Room Air Narrative Exam Narrative: Gen: NAD, sitting comfortably in bed, appears well HEENT: Sclera are anicteric, head is normocephalic and atraumatic, trachea is midline. CV: RRR, no JVD Resp: clear to auscultation bilaterally, equal chest wall movement bilaterally Abd: soft, nontender, normoactive bowel sounds Ext: no edema, full range of motion Neuro: Cranial nerves II-XII grossly intact, no focal deficits Skin: No erythema or ecchymosis Objective Labs 09/23/24 08:34 09/23/24 08:34 Labs: Laboratory Results - last 24 hr 09/23/24 08:34 WBC 22.6 H RBC 4.82 Hgb 14.9 Hct 44.7 MCV 92.8 MCH 31.0 MCHC 33.4 RDW 13.1 Plt Count 187 Neut % (Auto) 85.9 H Lymph % (Auto) 4.9 L Leon % (Auto) 8.9 Eos % (Auto) 0.1 L Baso % (Auto) 0.2 Neut # (Auto) 43868 H Lymph # (Auto) 1100 Leon # (Auto) 2000 H Eos # (Auto) 0 Baso # (Auto) 0 Sodium 130 L Potassium 4.0 Chloride 98 Carbon Dioxide 22 BUN 21 H Creatinine 1.16 Estimated GFR > 60 BUN/Creatinine Ratio 18.1 Glucose 186 H Lactate 1.8 Calcium 9.2 Total Bilirubin 1.1 AST 31 ALT 26 Alkaline Phosphatase 54 Troponin I < 0.012 Total Protein 7.5 Albumin 4.5 Globulin 3.0 Albumin/Globulin Ratio 1.5 Lipase 60 PFSH Medical History Enlarged lymph node in neck MIROSLAVA (obstructive sleep apnea) Silent ischemia 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 Snoring Excessive daytime sleepiness Nasal polyposis GERD (gastroesophageal reflux disease) Diverticular disease of large intestine Hyperlipidemia CAD (coronary artery disease) (2004) 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 Obstructive sleep apnea of adult (~2015) Surgical History History of total right knee replacement History of cardiac cath Hx of toe surgery (~2006) Status post arthroscopic partial lateral meniscectomy Hx of colectomy (2002) History of coronary artery stent placement History of cataract removal with insertion of prosthetic lens Social History marital status: details: with progressive supranuclear palsy household members: children and none lives independently: Yes caregiver/support person: Yes (he is the caregiver for his ) housing: house Tobacco & Substance Use Smoking Status: Never smoker alcohol intake: current Assessment & Plan Assessment and plan (1) Acute cholecystitis: Status: Acute Plan: CT scan is suggestive of cholecystitis without any obvious stones. We will obtain a HIDA scan. We would need to stop his Eliquis for 2 days prior to surgery. He did take his Eliquis today. (2) senior living current use of anticoagulant: Status: Acute Time-Based Coding :: [TOTAL MINUTES] spent with patient and on the chart (including review of chart, obtaining history, exam, reviewing outside data, placing orders, documenting exam and treatment plan, and counseling patient) on [DATE].
[2024-09-23] MEDS: HYDROMORPHONE 0.5 MG INJ IV ×3 (14:05→19:50)
[2024-09-23] MEDS: PIPERACILLIN/TAZO 4.5 GM in SODIUM CHLORIDE 0.9% 100 ML IV (14:05)
--- NOTE | 2024-09-23 16:17 | PM.HP.1 ---
History of Present Illness History of Present Illness Date Patient Seen: 09/23/24 Chief complaint: R SIDE ABD PAIN T-3 Narrative: The patient was an 79-year-old male with history of CAD, and atrial fibrillation on chronic Eliquis. He presented to the ED today with right sided abdominal pain which has been ongoing for 3 days. He was imaged with a CT scan which revealed evidence of cholecystit[place] [address]. General surgery was consulted for probable acute cholecystitis. HIDA scan is ordered and pending. He tells me that he was had right upper quadrant pain for 3 days which is described as constant and not radiating to the back, neck, or arm. He notes that he was had no nausea, vomiting, fevers, or chills. He denies any difficulty with urination, or hematuria. No diarrhea or blood per rectum. He was no history of gallbladder attacks. He does have a history of CAD in his had 7 cardiac stents in the back including what sounds like 7 stents into his LAD. He was followed by Dr. Olvera. He was also had atrial fibrillation with an ablation and takes apixaban b.i.d., last dose this morning. Imaging was consistent with cholecystitis with a HIDA scan pending. Surgery is following, anticipation of cholecystectomy Thursday morning due to OR is being closed on Thursday for work. 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 Snoring Excessive daytime sleepiness Nasal polyposis GERD (gastroesophageal reflux disease) Diverticular disease of large intestine Hyperlipidemia CAD (coronary artery disease) (2004) 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 Obstructive sleep apnea of adult (~2015) Surgical History History of total right knee replacement History of cardiac cath Hx of toe surgery (~2006) Status post arthroscopic partial lateral meniscectomy Hx of colectomy (2002) History of coronary artery stent placement History of cataract removal with insertion of prosthetic lens Social History marital status: details: with progressive supranuclear palsy household members: children and none lives independently: Yes caregiver/support person: Yes (he is the caregiver for his ) housing: house Smoking Status: Never smoker alcohol intake: current Meds Home Medications and Allergies Home Medications Medication Instructions Recorded Confirmed Type losartan 100 1 tab PO DAILY 11/21/21 09/22/24 History mg-hydrochlorothiazide 25 mg tablet rosuvastatin 20 mg tablet (Crestor) 10 mg PO QDAY #0 tabs 11/21/21 09/22/24 History spironolactone 25 mg tablet 25 mg PO DAILY 11/21/21 09/22/24 History ResMed AirSense 10 Auto 01/01/22 09/22/24 History aspirin 81 mg tablet,delayed 81 mg PO BID #84 tabs 08/21/22 09/22/24 Rx release carvedilol 25 mg tablet (Coreg) 12.5 mg PO BID #0 tabs 03/17/23 09/22/24 History apixaban 5 mg tablet (Eliquis) 5 mg PO BID 07/05/24 09/22/24 History Allergies Allergy/AdvReac Type Severity Reaction Status Date / Time Sulfa (Sulfonamide AdvReac Severe It felt Verified 09/22/24 10:44 Antibiotics) like they [SULFA (SULFONAMIDE injected ANTIBIOTICS)] acid in my system - IV amlodipine AdvReac Intermediate Rash Verified 09/22/24 10:44 celecoxib [From CELEBREX] AdvReac Mild Made me Verified 09/22/24 10:44 feel really weird hydrocodone AdvReac Mild Nausea Verified 09/22/24 10:44 Review of Systems Review of Systems Narrative: All else reviewed and otherwise unremarkable except as noted in the history and physical. Exam Vital Signs (past 8 hours): - 09/23/24 08:31 09/23/24 08:33 09/23/24 09:00 Temperature 98.5 F Pulse Rate 79 74 68 Respiratory Rate 16 20 Blood Pressure 172/72 H Pulse Oximetry 93 92 94 Oxygen Delivery Method Room Air 09/23/24 09:01 09/23/24 09:01 09/23/24 09:30 Temperature Pulse Rate 68 Respiratory Rate 20 Blood Pressure 164/72 H 172/74 H Pulse Oximetry 94 Oxygen Delivery Method 09/23/24 09:30 09/23/24 10:21 09/23/24 10:23 Temperature Pulse Rate 66 64 Respiratory Rate 19 Blood Pressure 162/101 H Pulse Oximetry 95 94 Oxygen Delivery Method 09/23/24 10:23 09/23/24 10:30 09/23/24 10:30 Temperature Pulse Rate 67 66 Respiratory Rate 21 20 Blood Pressure 168/77 H Pulse Oximetry 94 94 Oxygen Delivery Method 09/23/24 11:00 09/23/24 11:00 09/23/24 11:15 Temperature Pulse Rate 64 Respiratory Rate 19 Blood Pressure 167/72 H 189/77 H Pulse Oximetry 94 Oxygen Delivery Method 09/23/24 11:15 09/23/24 11:30 09/23/24 11:30 Temperature Pulse Rate 68 68 Respiratory Rate 23 17 Blood Pressure 171/74 H Pulse Oximetry 95 94 Oxygen Delivery Method 09/23/24 12:00 09/23/24 12:00 09/23/24 14:08 Temperature Pulse Rate 69 Respiratory Rate 24 Blood Pressure 176/77 H 177/77 H Pulse Oximetry 94 Oxygen Delivery Method 09/23/24 14:08 09/23/24 14:30 09/23/24 14:31 Temperature Pulse Rate 70 71 Respiratory Rate 20 22 Blood Pressure 164/68 H Pulse Oximetry 93 Oxygen Delivery Method 09/23/24 14:31 09/23/24 15:00 09/23/24 15:00 Temperature Pulse Rate 71 71 Respiratory Rate 22 24 Blood Pressure 163/76 H Pulse Oximetry 93 93 Oxygen Delivery Method 09/23/24 15:30 09/23/24 15:30 09/23/24 16:00 Temperature Pulse Rate 67 Respiratory Rate 19 Blood Pressure 162/71 H 154/69 H Pulse Oximetry 93 Oxygen Delivery Method 09/23/24 16:00 Temperature Pulse Rate 68 Respiratory Rate 19 Blood Pressure Pulse Oximetry 93 Oxygen Delivery Method Oxygen Delivery Method Room Air Narrative Exam Narrative: NAD, alert and oriented, fluent speech, calm. Normocephalic skull, EOMI, anicteric sclera, symmetric pupils. Oropharynx unremarkable, no droop. Neck supple, midline trachea, no adenopathy. Lungs clear, normal rate and effort. Heart regular, no murmur gallop or rub. Abdomen is soft, non distended and non tender. Extremities are free of edema. Skin is free of rash or lesions. Joints are not swollen or deformed. Judgment appears to be normal. Objective ECG Impression: Normal sinus rhythm Inferior infarct , age undetermined Imaging CT scan - abdomen: Radiologist's impression: 1. Findings are highly suspicious for acute cholecystitis. 2. Severe coronary artery calcifications. 3. Minimal bibasilar atelectasis and right pleural fluid. 4. Incidental note made of high-grade canal stenosis at L4-L5. Labs 09/23/24 08:34 09/23/24 08:34 Labs: Laboratory Results - last 24 hr 09/23/24 08:34 WBC 22.6 H RBC 4.82 Hgb 14.9 Hct 44.7 MCV 92.8 MCH 31.0 MCHC 33.4 RDW 13.1 Plt Count 187 Neut % (Auto) 85.9 H Lymph % (Auto) 4.9 L [place] % (Auto) 8.9 Eos % (Auto) 0.1 L Baso % (Auto) 0.2 Neut # (Auto) 07942 H Lymph # (Auto) 1100 [place] # (Auto) 2000 H Eos # (Auto) 0 Baso # (Auto) 0 Sodium 130 L Potassium 4.0 Chloride 98 Carbon Dioxide 22 BUN 21 H Creatinine 1.16 Estimated GFR > 60 BUN/Creatinine Ratio 18.1 Glucose 186 H Lactate 1.8 Calcium 9.2 Total Bilirubin 1.1 AST 31 ALT 26 Alkaline Phosphatase 54 Troponin I < 0.012 Total Protein 7.5 Albumin 4.5 Globulin 3.0 Albumin/Globulin Ratio 1.5 Lipase 60 Assessment & Plan Assessment & Plan narrative: 1. Acute cholecystitis, present on admission and active. 2. Essential hypertension, present on admission and stable. 3. PAF on anticoagulation, present on admission and stable. 4. MIROSLAVA, present on admission and stable. 5. CAD, present on admission and stable. PLAN: -hold anticoagulation -IV antibiotics -NPO, anticipate cholecystectomy. -continue perioperative beta blockade with his usual carvedilol. Time-Based Coding :: 35 min spent with patient and on the chart (including review of chart, obtaining history, exam, reviewing outside data, placing orders, documenting exam and treatment plan, and counseling patient) on 09/23. Quality MIPS - Admit I confirm the patient?s Advance Care Plan is present, Code status is documented, Surrogate decision maker is in patient?s record [If Yes, STOP here]: Yes MIPS - Meds 'Current medications' to include all prescriptions, nqyc-kus-yzoanat products, herbals, cannabis/cannabidiol products, and vitamin/mineral/dietary (nutritional) supplements. I have utilized all available resources to obtain, update, or review the patient?s current medications. [If Yes, STOP here]: Yes
[2024-09-23] MEDS: HEPARIN 5,000 UNIT/ML VIAL 5000 UNIT SUBCUT (20:43)
[2024-09-23] MEDS: METOPROLOL ER 25 MG TABLET PO (20:43)
[2024-09-23] MEDS: ASPIRIN EC 81 MG TABLET PO (20:43)
[2024-09-23] MEDS: DEXTROSE 5%-0.9% NS 1,000 ML 100 ML IV (20:44)
[2024-09-23] MEDS: PIPERACILLIN/TAZO 3.375 GM in SODIUM CHLORIDE 0.9% 100 ML IV (20:44)
[2024-09-24] VITALS: BP 132/63; PULSE 75; RESP 17; TEMP 37.4; O2SAT 92
[2024-09-24] MEDS: HYDROMORPHONE 0.5 MG INJ IV ×3 (00:18→11:13)
[2024-09-24 01:05] LABS: Acinetobacter calcoa-baumannii Not Detected (Not Detect); Bacteroides fragilis Not Detected (Not Detect); CTX-M Resistance Not Detected (Not Detect); Candida albicans Not Detected (Not Detect); Candida auris Not Detected (Not Detect); Candida glabrata Not Detected (Not Detect); Candida krusei Not Detected (Not Detect); Candida parapsilosis Not Detected (Not Detect); Candida tropicalis Not Detected (Not Detect); Cryptococcus neoformans/gatti Not Detected (Not Detect); Enterobacter cloacae complex Not Detected (Not Detect); Enterobacterales Detected (Not Detect); Enterococcus faecalis Not Detected (Not Detect); Enterococcus faecium Not Detected (Not Detect); Haemophilus influenzae Not Detected (Not Detect); IMP Resistance Not Detected (Not Detect); KPC Resistance Not Detected (Not Detect); Klebsiella aerogenes Not Detected (Not Detect); Listeria monocytogenes Not Detected (Not Detect); NDM Resistance Not Detected (Not Detect); Neisseria meningitidis Not Detected (Not Detect); OXA-48-like Resistance Not Detected (Not Detect); Proteus species Not Detected (Not Detect); Pseudomonas aeruginosa Not Detected (Not Detect); Salmonella species Not Detected (Not Detect); Serratia marcescens Not Detected (Not Detect); Staphylococcus epidermidis Not Detected (Not Detect); Staphylococcus lugdunensis Not Detected (Not Detect); Staphylococcus species Not Detected (Not Detect); Stenotrophomonas maltophilia Not Detected (Not Detect); Streptococcus agalactiae (Gr B Not Detected (Not Detect); Streptococcus pneumonia Not Detected (Not Detect); Streptococcus pyogenes (Gr A) Not Detected (Not Detect); Streptococcus species Not Detected (Not Detect); VIM Resistance Not Detected (Not Detect); mcr-1 Resistance Not Detected (Not Detect)
[2024-09-24 04:00] VITALS: BP 97/61; PULSE 77; RESP 17; TEMP 37.3; O2SAT 90
[2024-09-24] MEDS: PIPERACILLIN/TAZO 3.375 GM in SODIUM CHLORIDE 0.9% 100 ML IV ×3 (04:52→20:30)
[2024-09-24 05:21] LABS: Add Manual Diff / Slide Review NO; Basophils Absolute Auto 0 /uL (0-100); Basophils Percent Auto 0.1 % (0-2); Eosinophils Absolute Auto 0 /uL (0-450); Hematocrit 40.4 % (41-53); Hemoglobin 13.7 g/dL (13.5-17.5); Lymphocytes Absolute Auto 800 /uL (1100-4500); Lymphocytes Percent Auto 4.7 % (25-40); Mean Corpuscular HGB Conc 33.9 % (30-36); Mean Corpuscular Hemoglobin 31.5 PG (26-34); Monocytes Absolute Auto 1100 /uL (0-900); Monocytes Percent Auto 6.3 % (3-14); Neutrophils Absolute Auto 15200 /uL (1500-7000); Neutrophils Percent Auto 88.9 % (50-75); Platelet Count 145 X10^3/uL (150-400); Red Blood Cell Count 4.34 X10^6/uL (4.5-5.9); Red Cell Distribution Width 12.8 % (11.6-14.8); White Blood Cell Count 17.1 X10^3/uL (4.5-11.0)
[2024-09-24 05:24] LABS: Alanine Aminotransferase 18 IU/L (<50); Albumin 3.1 g/dL (3.5-5.0); Albumin Globulin Ratio 1.1 (1.0-2.8); Alkaline Phosphatase 53 U/L (38-126); Aspartate Aminotransferase 26 IU/L (17-59); BUN Creatinine Ratio 21.1 (6-22); Blood Urea Nitrogen 24 mg/dL (9-20); Calcium 8.4 mg/dL (8.4-10.2); Carbon Dioxide 22 mmol/L (22-32); Chloride 101 mmol/L (98-107); Estimated Glomerular Filt Rate > 60 mL/min (>60); Globulin 2.7 g/dL (1.7-4.1); Glucose 146 mg/dL (80-110); HEMOLYSIS 23 (0-50); Potassium 4.1 mmol/L (3.4-5.1); Sodium 129 mmol/L (137-145); Total Protein 5.8 g/dL (6.3-8.2)
[2024-09-24 08:00] VITALS: BP 120/64; PULSE 77; RESP 20; TEMP 36.7; O2SAT 93
[2024-09-24 08:14] VITALS: BP 120/64; PULSE 77
[2024-09-24] MEDS: METOPROLOL ER 25 MG TABLET PO (08:14)
[2024-09-24] MEDS: ASPIRIN EC 81 MG TABLET PO ×2 (08:14→20:31)
[2024-09-24] MEDS: HEPARIN 5,000 UNIT/ML VIAL 5000 UNIT SUBCUT ×2 (10:27→20:31)
[2024-09-24 12:00] VITALS: BP 108/59; PULSE 74; RESP 18; TEMP 37; O2SAT 91
--- NOTE | 2024-09-24 13:05 | CM.DANOTE ---
Initial DCP Assessment Note Pt is a 79 yo male, resident of [place], arrives with abd pain, found to have Acute cholecystitis and scheduled for lap teresita 09/25. Patient on anticoagulation which has been stopped. PCP: Tammie Alejandre Payer: CHERRY/CIRILO Ramírez Ins Reviewed chart, met w/patient and his spouse at bedside. Patient lives independently w/sp, they have been for 6 months. Patient and sp have 5 adult children, all of whom they describe as supportive. Daughter from the [facility] will be here tomorrow. Patient reports no current barriers to return home w/family to assist. Spouse reports they are scheduled to leave for a trip to [place] soon and would like input from the surgeon re when patient is cleared to travel. No barriers identified at this time to patient's safe discharge home w/family to assist; close outpatient f/u recommended. CM team will plan to follow clinical course closely in case any DC needs or concerns arise. JOAN Leigh Discharge Planning/Care Management CM Discharge Assessment Start: 09/24/24 12:51 Freq: Status: Active Protocol: Document 09/24/24 12:51 KATIANA (Rec: 09/24/24 13:04 KATIANA [id number]) Discharge Planning Assessment Assigned Hearing Care Practitioner JOAN Antunez DPOA/Assigned Designee Name Peggy Cash, spouse Contact Information [phone] cell Advance Directives? Yes Advance Directives on File No History Provided By Patient,Significant Other, Medical Record Prior Living Arrangements House Household Members spouse Type of transporation used prior to Drives own vehicle admit Independent with ADL's Yes Is patient alert and oriented? Yes Comment No AD Barriers to Discharge No Comment None identified at this time Discharge Plan Home Transportation Arrangement Spouse Referrals Initiated None needed
[2024-09-24] MEDS: PREGABALIN 75 MG CAPSULE PO ×2 (14:39→20:30)
[2024-09-24] MEDS: ACETAMINOPHEN 325 MG TABLET 650 MG PO ×2 (14:39→20:31)
--- NOTE | 2024-09-24 17:15 | PM.PN.1 ---
Subjective Subjective Interval history: 79-year-old male with coronary artery disease, obstructive sleep apnea, hyperlipidemia, hypertension, GERD, and paroxysmal atrial fibrillation on chronic Eliquis anticoagulation who was admitted with acute cholecystitis last evening. Patient reports his pain is being well controlled with current medications. He is receiving Lyrica 75 mg twice daily, and has Dilaudid also available. He does complain of some diaphoresis which she believes is from the Lyrica. However, he states he is pain-free at this time and wants to continue taking it. He is additionally receiving scheduled Tylenol. He has no other complaints. Exam Vital Signs (past 8 hours): - 09/24/24 12:00 Temperature 98.6 F Pulse Rate 74 Respiratory Rate 18 Blood Pressure 108/59 L Pulse Oximetry 91 Oxygen Flow Rate 0 Oxygen Delivery Method Room Air Oxygen Flow Rate 0 Narrative Exam Narrative: GEN: Pleasant elderly male, Alert and oriented x 3, NAD HEENT:NC, Face symmetric CHEST: Respiratory excursions symmetric, CTAB CV: RRR, no M/R/G ABD: Soft, obese, NT/ND, BT present in all 4 quadrants, body habitus limits exam EXTR: warm, well perfused, no C/C/E SKIN: Face is flushed, diaphoretic on his scalp, neck, and back NEURO: Alert and oriented x 3, nonfocal Objective Labs 09/24/24 04:30 09/24/24 04:30 Labs: Laboratory Results - last 24 hr 09/23/24 09/24/24 23:54 04:30 WBC 17.1 H RBC 4.34 L Hgb 13.7 Hct 40.4 L MCV 93.0 MCH 31.5 MCHC 33.9 RDW 12.8 Plt Count 145 L Neut % (Auto) 88.9 H Lymph % (Auto) 4.7 L [place] % (Auto) 6.3 Eos % (Auto) 0.0 L Baso % (Auto) 0.1 Neut # (Auto) 16450 H Lymph # (Auto) 800 L [place] # (Auto) 1100 H Eos # (Auto) 0 Baso # (Auto) 0 Sodium 129 L Potassium 4.1 Chloride 101 Carbon Dioxide 22 BUN 24 H Creatinine 1.14 Estimated GFR > 60 BUN/Creatinine Ratio 21.1 Glucose 146 H Calcium 8.4 Total Bilirubin 1.0 AST 26 ALT 18 Alkaline Phosphatase 53 Total Protein 5.8 L Albumin 3.1 L Globulin 2.7 Albumin/Globulin Ratio 1.1 A.calcoaceticus-baumannii cmplx PCR Not detected Bacteroides fragilis Not detected Kortney albicans (PCR) Not detected Kortney auris (PCR) Not detected C. glabrata (PCR) Not detected C. krusei (PCR) Not detected C. parapsilosis (PCR) Not detected C. tropicalis (PCR) Not detected C. neoform/gattii (PCR) Not detected Enterobacterales (PCR) Detected E. cloacae complex PCR Not detected Enterococc faecalis PCR Not detected Enterococc faecium PCR Not detected E. coli (PCR) Detected H. influenzae (PCR) Not detected Klebsiella aerogenes (PCR) Not detected Klebsiella oxytoca PCR Not detected Klebsiella pneumoniae Not detected List. monocytogenes PCR Not detected N. meningitidis (PCR) Not detected Proteus species (PCR) Not detected Salmonella spp. (PCR) Not detected Serratia marcescens PCR Not detected Staphylococcus sp PCR Not detected Staph aureus (PCR) Not detected mecA/C & MREJ Resist Gene Not applicable mecA/C-Methicil Resis Gene Not applicable mcr-1 Colistin Res Gene PCR Not detected Staph epidermidis (PCR) Not detected Staph lugdunensis PCR Not detected S. maltophilia (PCR) Not detected Streptococcus sp PCR Not detected Group A Strep (PCR) Not detected Strep agalactiae (PCR) Not detected Strep pneumoniae (PCR) Not detected P. 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 Snoring Excessive daytime sleepiness Nasal polyposis GERD (gastroesophageal reflux disease) Diverticular disease of large intestine Hyperlipidemia CAD (coronary artery disease) (2004) 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 Obstructive sleep apnea of adult (~2015) Surgical History History of total right knee replacement History of cardiac cath Hx of toe surgery (~2006) Status post arthroscopic partial lateral meniscectomy Hx of colectomy (2002) History of coronary artery stent placement History of cataract removal with insertion of prosthetic lens Social History marital status: details: with progressive supranuclear palsy household members: spouse lives independently: Yes caregiver/support person: Yes (he is the caregiver for his ) housing: house Smoking Status: Never smoker alcohol intake: current Assessment & Plan Assessment & Plan narrative: 1. Acute cholecystitis Patient remains NPO with plan for surgery tomorrow morning. His pain is well managed. Continue Zosyn therapy. WBC count is improving 2. Paroxysmal atrial fibrillation on chronic Eliquis anticoagulation Eliquis has been held for surgery. He is on heparin for DVT prophylaxis. He is currently sinus by exam. 3. 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 Blood pressures have been normotensive to mildly hypotensive since admission. He is asymptomatic. 4. Coronary artery disease Denies current symptoms. 5. Obstructive sleep apnea Chronic, stable 6. Hyponatremia Sodium is down to 129 today. It was 130 on admission. Will monitor. Code status Full Prophylaxis Heparin. Will hold tomorrow's heparin Disposition Pending Time-Based Coding :: [TOTAL MINUTES] spent with patient and on the chart (including review of chart, obtaining history, exam, reviewing outside data, placing orders, documenting exam and treatment plan, and counseling patient) on [DATE]. Quality VTE Deep Vein Thrombosis/Pulmonary Embolism Present on Admission: No
[2024-09-24] MEDS: DEXTROSE 5%-0.9% NS 1,000 ML 100 ML IV (17:18)
[2024-09-24 18:00] VITALS: BP 112/58; PULSE 67; RESP 18; TEMP 36.5; O2SAT 95
--- NOTE | 2024-09-24 19:05 | P.PN_ITS ---
Subjective Subjective Date Patient Seen: 09/24/24 Time Patient Seen: 19:06 Interval history: Patient's pain has improved with a combination of IV antibiotics, acetaminophen and Lyrica. We have him on the schedule for laparoscopic cholecystectomy tomorrow. No nausea or vomiting, diarrhea or constipation. No chest pain or shortness of breath. Exam Vital Signs (past 8 hours): - 09/24/24 12:00 09/24/24 18:00 Temperature 98.6 F 97.7 F Pulse Rate 74 67 Respiratory Rate 18 18 Blood Pressure 108/59 L 112/58 L Pulse Oximetry 91 95 Oxygen Flow Rate 0 0 Oxygen Delivery Method Room Air Oxygen Flow Rate 0 Narrative Exam Narrative: Gen: NAD, sitting comfortably in bed, appears well HEENT: Sclera are anicteric, head is normocephalic and atraumatic, trachea is midline. CV: RRR, no JVD Resp: clear to auscultation bilaterally, equal chest wall movement bilaterally Abd: soft, nontender, normoactive bowel sounds Ext: no edema, full range of motion Neuro: Cranial nerves II-XII grossly intact, no focal deficits Skin: No erythema or ecchymosis Objective Labs 09/24/24 04:30 09/24/24 04:30 Labs: Laboratory Results - last 24 hr 09/23/24 09/24/24 23:54 04:30 WBC 17.1 H RBC 4.34 L Hgb 13.7 Hct 40.4 L MCV 93.0 MCH 31.5 MCHC 33.9 RDW 12.8 Plt Count 145 L Neut % (Auto) 88.9 H Lymph % (Auto) 4.7 L [place] % (Auto) 6.3 Eos % (Auto) 0.0 L Baso % (Auto) 0.1 Neut # (Auto) 82632 H Lymph # (Auto) 800 L [place] # (Auto) 1100 H Eos # (Auto) 0 Baso # (Auto) 0 Sodium 129 L Potassium 4.1 Chloride 101 Carbon Dioxide 22 BUN 24 H Creatinine 1.14 Estimated GFR > 60 BUN/Creatinine Ratio 21.1 Glucose 146 H Calcium 8.4 Total Bilirubin 1.0 AST 26 ALT 18 Alkaline Phosphatase 53 Total Protein 5.8 L Albumin 3.1 L Globulin 2.7 Albumin/Globulin Ratio 1.1 A.calcoaceticus-baumannii cmplx PCR Not detected Bacteroides fragilis Not detected Kortney albicans (PCR) Not detected Kortney auris (PCR) Not detected C. glabrata (PCR) Not detected C. krusei (PCR) Not detected C. parapsilosis (PCR) Not detected C. tropicalis (PCR) Not detected C. neoform/gattii (PCR) Not detected Enterobacterales (PCR) Detected E. cloacae complex PCR Not detected Enterococc faecalis PCR Not detected Enterococc faecium PCR Not detected E. coli (PCR) Detected H. influenzae (PCR) Not detected Klebsiella aerogenes (PCR) Not detected Klebsiella oxytoca PCR Not detected Klebsiella pneumoniae Not detected List. monocytogenes PCR Not detected N. meningitidis (PCR) Not detected Proteus species (PCR) Not detected Salmonella spp. (PCR) Not detected Serratia marcescens PCR Not detected Staphylococcus sp PCR Not detected Staph aureus (PCR) Not detected mecA/C & MREJ Resist Gene Not applicable mecA/C-Methicil Resis Gene Not applicable mcr-1 Colistin Res Gene PCR Not detected Staph epidermidis (PCR) Not detected Staph lugdunensis PCR Not detected S. maltophilia (PCR) Not detected Streptococcus sp PCR Not detected Group A Strep (PCR) Not detected Strep agalactiae (PCR) Not detected Strep pneumoniae (PCR) Not detected P. 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 Snoring Excessive daytime sleepiness Nasal polyposis GERD (gastroesophageal reflux disease) Diverticular disease of large intestine Hyperlipidemia CAD (coronary artery disease) (2004) 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 Obstructive sleep apnea of adult (~2015) Surgical History History of total right knee replacement History of cardiac cath Hx of toe surgery (~2006) Status post arthroscopic partial lateral meniscectomy Hx of colectomy (2002) History of coronary artery stent placement History of cataract removal with insertion of prosthetic lens Social History marital status: details: with progressive supranuclear palsy household members: spouse lives independently: Yes caregiver/support person: Yes (he is the caregiver for his ) housing: house Smoking Status: Never smoker alcohol intake: current Assessment & Plan Assessment and plan (1) Acute cholecystitis: Status: Acute (2) assisted current use of anticoagulant: Status: Acute Assessment & Plan narrative: NPO after midnight, continue antibiotics. Discussed risk of bruising and bleeding from the anticoagulation, as well as risk of thromboembolic events from holding his anticoagulation. Recommend continuing to walk every 2 hours Plan for laparoscopic cholecystectomy in the morning. Time-Based Coding :: [TOTAL MINUTES] spent with patient and on the chart (including review of chart, obtaining history, exam, reviewing outside data, placing orders, documenting exam and treatment plan, and counseling patient) on [DATE]. Quality VTE Deep Vein Thrombosis/Pulmonary Embolism Present on Admission: No IH PROFEE Charge codes Subsequent inpatient/observation care: [id number]
[2024-09-24] MEDS: TIZANIDINE 4 MG TABLET 2 MG PO (22:29)
[2024-09-25] VITALS (27 sets, daily range): BP systolic 99–136; BP diastolic 46–81; PULSE 66–102; RESP 16–24; TEMP 35.7–38.8; O2SAT 94–98; BMI 31.4
--- NOTE | 2024-09-25 | PATH_ITS ---
[facility] Accession Number: [id number] No. of containers..01 Tissue . 01 Material submitted: . gallbladder - GALLBLADDER . 01 Diagnosis: GALLBLADDER: Acute and chronic cholecystitis with cholelithiasis. No dysplasia or malignancy identified. [facility] 09/29/2024 1355 Local . 01 Electronically signed: . Mike Dominguez MD, Pathologist NPI- [id number] . 01 Gross description: . Received in formalin with two identifiers and gallbladder, is a fragmented gallbladder (10.1 x 6.4 x 2.5 cm in aggregate) with no identifiable cystic duct margin. No calculi are identified in the lumen or the container. The serosa is violaceous and ragged while the mucosa is medrano and velvety with no distinct yellow areas of discoloration, polyps, or leisons identified. The de jesus average 0.3 cm thick. Help Desk Representative sections are submitted in cassette A1. ([id number]) /KEVIN 09/29/20241354 Local . 01 Pathologist provided ICD-10: K80.12 . 01 CPT . 548900 Specimen Comment: A courtesy copy of this report has been sent to [facility] Performed at: [address], [place], [place] [id number] MD Mike Dominguez MD Phone: [phone]
[2024-09-25] MEDS: DEXTROSE 5%-0.9% NS 1,000 ML 100 ML IV (01:57)
[2024-09-25] MEDS: PIPERACILLIN/TAZO 3.375 GM in SODIUM CHLORIDE 0.9% 100 ML IV ×2 (03:52→13:55)
[2024-09-25 04:06] LABS: Add Manual Diff / Slide Review NO; Basophils Absolute Auto 100 /uL (0-100); Basophils Percent Auto 0.5 % (0-2); Eosinophils Absolute Auto 100 /uL (0-450); Eosinophils Percent Auto 0.5 % (2-4); Hematocrit 37.2 % (41-53); Hemoglobin 12.5 g/dL (13.5-17.5); Lymphocytes Absolute Auto 500 /uL (1100-4500); Lymphocytes Percent Auto 4.2 % (25-40); Mean Corpuscular HGB Conc 33.6 % (30-36); Mean Corpuscular Hemoglobin 31.4 PG (26-34); Mean Corpuscular Volume 93.5 fL (80-100); Monocytes Absolute Auto 800 /uL (0-900); Neutrophils Absolute Auto 11400 /uL (1500-7000); Neutrophils Percent Auto 88.8 % (50-75); Platelet Count 138 X10^3/uL (150-400); Red Blood Cell Count 3.98 X10^6/uL (4.5-5.9); Red Cell Distribution Width 13.1 % (11.6-14.8); White Blood Cell Count 12.8 X10^3/uL (4.5-11.0)
[2024-09-25 04:16] LABS: Alanine Aminotransferase 22 IU/L (<50); Alkaline Phosphatase 53 U/L (38-126); Aspartate Aminotransferase 28 IU/L (17-59); BUN Creatinine Ratio 23.5 (6-22); Bilirubin Total 0.9 mg/dL (0.2-1.3); Blood Urea Nitrogen 31 mg/dL (9-20); Calcium 7.9 mg/dL (8.4-10.2); Carbon Dioxide 27 mmol/L (22-32); Chloride 103 mmol/L (98-107); Estimated Glomerular Filt Rate 55 mL/min (>60); Globulin 2.9 g/dL (1.7-4.1); Glucose 135 mg/dL (80-110); HEMOLYSIS < 15 (0-50); Potassium 3.6 mmol/L (3.4-5.1); Sodium 131 mmol/L (137-145); Total Protein 5.9 g/dL (6.3-8.2)
[2024-09-25] MEDS: ACETAMINOPHEN 325 MG TABLET 650 MG PO ×3 (04:32→20:55)
[2024-09-25] MEDS: KETOROLAC 30 MG/ML VIAL 15 MG IV (06:45)
[2024-09-25] MEDS: LACTATED RINGERS 1,000 ML 42 ML IV ×3 (08:55→12:32)
[2024-09-25] MEDS: CEFAZOLIN 2 GM/100 ML PREMIX 100 ML IV (09:13)
--- NOTE | 2024-09-25 09:33 | SUR.OPER ---
Supine on padded OR bed, head on pillow, safety belt at thigh, left arm padded and tucked at side. Right arm secured on padded arm board <90 degrees abduction. Legs uncrossed. Padded footboard in place. Tape over blanket to secure lower legs.
[2024-09-25] MEDS: BUPIVACAINE 0.5% W/ EPI (PF) 30 ML VIAL 60 ML INJ (09:49)
--- NOTE | 2024-09-25 12:04 | CM.DPNOTE ---
Addendum entered by JOAN Nath 09/25/24 13:03: Per casino attendant, pt EBL during surgery was around 1,000 mL. likely will not dc today (Thursday). SL Original Note: DCP Note TUBE SKIVER reviewed EMR. Per casino attendant in morning rounds, pt in OR this morning for lap teresita, could potentially dc later this afternoon vs Thursday. No barriers identified at this time to patient's safe discharge home w/family to assist; close outpatient f/u recommended. CM team will plan to follow clinical course closely in case any DC needs or concerns arise. JOAN Nath
--- NOTE | 2024-09-25 12:29 | P.OP_ITS ---
Operative Date/Time/Diagnoses Date of procedure: 09/25/24 Time of procedure: 12:29 Pre-op diagnosis: 1. 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 bile for culture 2. gallbladder) Prosthetic devices, grafts, tissues, transplants, or devices: . Estimated Blood Loss (mL): 1,000 Blood products transfused: none Procedure in detail: Patient took his last dose of apixaban Thursday. We waited until Thursday to do surgery. Risks, benefits, alternatives were explained patient agreed to proceed. Patient was brought to the operating room suite. General anesthesia was induced. Patient was placed in the supine position with the arms out. Abdomen was shaved prepped and draped in usual fashion. Patient had a previous midline incision for diverticulitis. As such, 5 mm optical trocar was placed near the xiphoid under optical visualization. Pneumoperitoneum was achieved. Additional 5 mm trocars placed in the right upper quadrant the entry site was inspected there was no evidence of injury. There were small bowel adhesions along the midline scar. In order to accommodate an 11 mm trocar, cold Metzenbaum scissors were used to clear some of the small bowel adhesions in the 11 mm trocar was placed just left lateral to the umbilicus. Additional 5 mm trocars placed in the right upper quadrant x2. The gallbladder had dense omental adhesions which were pulled away. The gallbladder was inflamed and gangrenous in appearance. It was tense. Bile was aspirated and foul-smelling sent for culture. The medial and lateral attachments of the gallbladder were taken down with Bovie electrocautery. The cystic duct was identified clipped and divided. Cystic artery was identified clipped and divided. However the inferior clip fell off and attempts to Requip with the 5 mm clip heavy duty custodian were not immediately successful. A 2nd 5 mm clip heavy duty custodian was attempted and also not successful. Finally a 10 mm clip heavy duty custodian was inserted through an additional 12 mm port placed in the right middle abdomen. After firing the 10 mm clip successful hemostasis was achieved. Estimates based on suctioned volume is approximately 1 L blood loss. Powdered cellulose was placed over the clip site. Bovie electrocautery was used to remove the gallbladder from the liver bed and brought out through the 12 mm trocar. The abdomen was copiously irrigated and suctioned. Omentum was placed in the hepatic fossa. The 12 mm and 11 mm trocars were closed with 0 Vicryl on a Jarvis Looney transfascial suture Passer. Pneumoperitoneum was relieved. Skin was closed with 4-0 Monocryl and Dermabond. Patient tolerated the procedure well was transferred to PACU in stable condition. Repeat labs pending. Complications: none Post-operative Condition: stable Disposition: PACU Plan for aftercare: continued hospital stay
[2024-09-25 12:31] LABS: Hematocrit 34.4 % (41-53); Hemoglobin 11.5 g/dL (13.5-17.5); Mean Corpuscular HGB Conc 33.4 % (30-36); Mean Corpuscular Hemoglobin 31.5 PG (26-34); Mean Corpuscular Volume 94.2 fL (80-100); Platelet Count 244 X10^3/uL (150-400); Red Blood Cell Count 3.65 X10^6/uL (4.5-5.9); White Blood Cell Count 22.7 X10^3/uL (4.5-11.0)
[2024-09-25] MEDS: ACETAMINOPHEN IV 1,000 MG/100 ML VIAL 400 MG IV (12:32)
[2024-09-25 12:43] LABS: PTT Partial Thromboplastin Tim 29 SECONDS (25.1-36.5)
[2024-09-25 12:49] LABS: INR 2.2 (0.9-1.3); Prothrombin Time 24.5 SECONDS (9.4-12.5)
[2024-09-25] MEDS: ONDANSETRON 4 MG/2 ML INJ IV (12:51)
[2024-09-25 13:04] LABS: Fibrinogen 533 mg/dL (238-498)
[2024-09-25] MEDS: ONDANSETRON 4 MG ODT PO (13:55)
[2024-09-25] MEDS: hydrOXYzine HCL 25 MG TABLET PO (14:46)
[2024-09-25] MEDS: cefTRIAXone 2,000 MG in SODIUM CHLORIDE 0.9% 100 ML 200 MG IV (15:05)
[2024-09-25] MEDS: OXYCODONE IR 5 MG TABLET PO (15:32)
--- NOTE | 2024-09-25 17:09 | PM.PN.1 ---
Subjective Subjective Interval history: 79-year-old male with coronary artery disease, obstructive sleep apnea, hyperlipidemia, hypertension, GERD, and paroxysmal atrial fibrillation on chronic Eliquis anticoagulation who was admitted with acute cholecystitis on September 23. Surgery was deferred until today due to his anticoagulation Patient underwent laparoscopic cholecystectomy this morning. He was found to have a gangrenous gallbladder. Blood cultures revealed pansensitive E coli in 2/4 bottles drawn on September 23. Currently, patient reports mild pain at his incision site in the right upper quadrant. He also complains of some nausea. He has not had any oral intake since surgery. He denies any shortness a breath. No other complaints. Exam Vital Signs (past 8 hours): - 09/25/24 12:13 09/25/24 12:19 09/25/24 12:23 Temperature 98.3 F Pulse Rate 86 102 H 87 Respiratory Rate 21 16 18 Blood Pressure 99/53 L 115/55 L 106/53 L Pulse Oximetry 96 96 96 Oxygen Delivery Method Room Air Room Air Room Air Oxygen Flow Rate 09/25/24 12:38 09/25/24 12:43 09/25/24 12:54 Temperature Pulse Rate 85 83 81 Respiratory Rate 20 24 18 Blood Pressure 116/55 L 119/50 L 119/58 L Pulse Oximetry 96 96 96 Oxygen Delivery Method Room Air Room Air Room Air Oxygen Flow Rate 09/25/24 12:55 09/25/24 13:20 09/25/24 13:50 Temperature 96.2 F L 96.8 F L Pulse Rate 85 84 87 Respiratory Rate 20 17 16 Blood Pressure 114/54 L 133/81 136/71 Pulse Oximetry 96 94 97 Oxygen Delivery Method Room Air Oxygen Flow Rate 0 0 09/25/24 14:00 09/25/24 14:20 09/25/24 14:58 Temperature 98.4 F 97.4 F L Pulse Rate 84 84 Respiratory Rate 19 16 Blood Pressure 130/66 130/60 Pulse Oximetry 96 97 Oxygen Delivery Method Room Air Oxygen Flow Rate 0 09/25/24 15:10 09/25/24 15:20 09/25/24 16:15 Temperature 98.4 F 98.4 F 97.7 F Pulse Rate 81 82 81 Respiratory Rate 16 18 16 Blood Pressure 136/72 136/72 120/78 Pulse Oximetry 98 Oxygen Delivery Method Oxygen Flow Rate 0 Oxygen Delivery Method Room Air Oxygen Flow Rate 0 Narrative Exam Narrative: GEN: Pleasant elderly male, Alert and oriented x 3, NAD HEENT:NC, Face symmetric CHEST: Respiratory excursions symmetric, CTAB CV: RRR, no M/R/G ABD: Soft, obese, mild tenderness in the right upper quadrant, incisions are clean/dry/intact, BT hypoactive but present in all 4 quadrants, body habitus limits exam EXTR: warm, well perfused, no C/C/E SKIN: Warm and dry NEURO: Alert and oriented x 3, nonfocal Objective Labs 09/25/24 12:20 09/25/24 03:37 Labs: Laboratory Results - last 24 hr 09/25/24 09/25/24 03:37 12:20 WBC 12.8 H 22.7 H D RBC 3.98 L 3.65 L Hgb 12.5 L 11.5 L Hct 37.2 L 34.4 L MCV 93.5 94.2 MCH 31.4 31.5 MCHC 33.6 33.4 RDW 13.1 13.0 Plt Count 138 L 244 Neut % (Auto) 88.8 H Lymph % (Auto) 4.2 L [place] % (Auto) 6.0 Eos % (Auto) 0.5 L Baso % (Auto) 0.5 Neut # (Auto) 48453 H Lymph # (Auto) 500 L [place] # (Auto) 800 Eos # (Auto) 100 Baso # (Auto) 100 PT 24.5 H INR 2.2 H APTT 29 Fibrinogen 533 H Sodium 131 L Potassium 3.6 Chloride 103 Carbon Dioxide 27 BUN 31 H Creatinine 1.32 H Estimated GFR 55 L BUN/Creatinine Ratio 23.5 H Glucose 135 H Calcium 7.9 L Total Bilirubin 0.9 AST 28 ALT 22 Alkaline Phosphatase 53 Total Protein 5.9 L Albumin 3.0 L Globulin 2.9 Albumin/Globulin Ratio 1.0 Blood Type A Positive Antibody Screen Negative [facility] Medical History Enlarged lymph node in neck MIROSLAVA (obstructive sleep apnea) Silent ischemia Obesity (BMI 30-39.9) 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 Snoring Excessive daytime sleepiness Nasal polyposis GERD (gastroesophageal reflux disease) Diverticular disease of large intestine Hyperlipidemia CAD (coronary artery disease) (2005) 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 Obstructive sleep apnea of adult (~2015) Surgical History History of total right knee replacement History of cardiac cath Hx of toe surgery (~2006) Status post arthroscopic partial lateral meniscectomy Hx of colectomy (2002) History of coronary artery stent placement History of cataract removal with insertion of prosthetic lens Social History marital status: details: with progressive supranuclear palsy household members: spouse lives independently: Yes caregiver/support person: Yes (he is the caregiver for his ) housing: house Smoking Status: Never smoker alcohol intake: current Assessment & Plan Assessment & Plan narrative: 1. Acute gangrenous cholecystitis, postoperative day 0 Ongoing postoperative care per General surgery. He remains on antibiotics. 2. E coli bacteremia, secondary to 1. Pansensitive. Will discontinue Zosyn therapy and initiate ceftriaxone. White blood cell count did increase from 12.8 this morning to 22.7 this afternoon. Likely that is secondary to stress-induced response related to surgery. Per the op report, the gallbladder was not perforated. 3. Paroxysmal atrial fibrillation on chronic Eliquis anticoagulation Eliquis has been held for surgery. Heparin was held for surgery today. Will resume Eliquis anticoagulation when cleared to do so per surgery. 4. 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 Blood pressures have been normotensive today. 5. Coronary artery disease Denies current symptoms. 6. Obstructive sleep apnea Chronic, stable 7. Hyponatremia Sodium was 129 yesterday. It is improved at 131 today. Code status Full Prophylaxis Heparin was held for surgery this morning. Eliquis is also on hold until cleared by surgery for restarting. Disposition Pending Time-Based Coding :: [TOTAL MINUTES] spent with patient and on the chart (including review of chart, obtaining history, exam, reviewing outside data, placing orders, documenting exam and treatment plan, and counseling patient) on [DATE]. Quality VTE Deep Vein Thrombosis/Pulmonary Embolism Present on Admission: No
[2024-09-25 18:21] LABS: Hematocrit 29.4 % (41-53)
[2024-09-25 18:27] LABS: Prothrombin Time 22.1 SECONDS (9.4-12.5)
[2024-09-25] MEDS: TIZANIDINE 4 MG TABLET PO (20:56)
[2024-09-26] VITALS (12 sets, daily range): BP systolic 94–127; BP diastolic 47–57; PULSE 66–75; RESP 14–18; TEMP 35.8–36.7; O2SAT 95–98
[2024-09-26] MEDS: SODIUM CHLORIDE 0.9% FLUSH 10 ML IV ×3 (01:48→20:03)
[2024-09-26] MEDS: ACETAMINOPHEN 325 MG TABLET 650 MG PO ×4 (01:53→20:02)
--- NOTE | 2024-09-26 05:57 | PC.NURSE ---
Pt had an in and out catheter with 450 ml of dark, yellow urine.
[2024-09-26] MEDS: PANTOPRAZOLE DR 20 MG TABLET PO (06:19)
[2024-09-26 06:36] LABS: Add Manual Diff / Slide Review NO; Basophils Absolute Auto 0 /uL (0-100); Basophils Percent Auto 0.1 % (0-2); Eosinophils Absolute Auto 0 /uL (0-450); Hematocrit 24.9 % (41-53); Hemoglobin 8.6 g/dL (13.5-17.5); Lymphocytes Absolute Auto 400 /uL (1100-4500); Lymphocytes Percent Auto 2.7 % (25-40); Mean Corpuscular HGB Conc 34.6 % (30-36); Mean Corpuscular Hemoglobin 31.8 PG (26-34); Mean Corpuscular Volume 91.8 fL (80-100); Monocytes Absolute Auto 1000 /uL (0-900); Monocytes Percent Auto 7.1 % (3-14); Neutrophils Absolute Auto 12100 /uL (1500-7000); Neutrophils Percent Auto 90.1 % (50-75); Platelet Count 153 X10^3/uL (150-400); Red Blood Cell Count 2.71 X10^6/uL (4.5-5.9); Red Cell Distribution Width 12.8 % (11.6-14.8); White Blood Cell Count 13.4 X10^3/uL (4.5-11.0)
[2024-09-26 06:45] LABS: BUN Creatinine Ratio 29.6 (6-22); Blood Urea Nitrogen 47 mg/dL (9-20); Calcium 7.4 mg/dL (8.4-10.2); Carbon Dioxide 22 mmol/L (22-32); Chloride 100 mmol/L (98-107); Estimated Glomerular Filt Rate 44 mL/min (>60); Glucose 149 mg/dL (80-110); HEMOLYSIS < 15 (0-50); Potassium 3.7 mmol/L (3.4-5.1); Sodium 130 mmol/L (137-145)
--- NOTE | 2024-09-26 07:27 | PM.PN.1 ---
Subjective Subjective Interval history: Summary: 79-year-old male with coronary artery disease, obstructive sleep apnea, hyperlipidemia, hypertension, GERD, and paroxysmal atrial fibrillation on chronic Eliquis anticoagulation who was admitted with acute cholecystitis on September 23. Surgery was deferred until today due to his anticoagulation Patient underwent laparoscopic cholecystectomy this morning. He was found to have a gangrenous gallbladder. Blood cultures revealed pansensitive E coli in 2/4 bottles drawn on September 23. S: He feels much better than yesterday. Minimal right abdominal pain. Some. No shortness a breath. No nausea. Exam Vital Signs (past 8 hours): - 09/26/24 00:03 09/26/24 01:57 09/26/24 04:40 Temperature 97.2 F L 96.5 F L Pulse Rate 70 75 Respiratory Rate 18 18 Blood Pressure 102/56 L 94/53 L Pulse Oximetry 96 96 97 Oxygen Delivery Method Room Air Oxygen Flow Rate 0 0 Oxygen Delivery Method Room Air Oxygen Flow Rate 0 Narrative Exam Narrative: NAD, alert and oriented. Fluent speech. Lungs are clear, normal rate and effort. Heart is regular, no murmur gallop or rub. Abdomen is soft, non distended. Minimal right upper quadrant tenderness, all port sites are unremarkable. Extremities are free of edema. Objective Labs 09/26/24 06:06 09/26/24 06:06 Labs: Laboratory Results - last 24 hr 09/25/24 09/25/24 09/26/24 12:20 18:12 06:06 WBC 22.7 H D 13.4 H RBC 3.65 L 2.71 L Hgb 11.5 L 10.0 L 8.6 L Hct 34.4 L 29.4 L 24.9 L MCV 94.2 91.8 MCH 31.5 31.8 MCHC 33.4 34.6 RDW 13.0 12.8 Plt Count 244 153 Neut % (Auto) 90.1 H Lymph % (Auto) 2.7 L [place] % (Auto) 7.1 Eos % (Auto) 0.0 L Baso % (Auto) 0.1 Neut # (Auto) 91291 H Lymph # (Auto) 400 L [place]rio # (Auto) 1000 H Eos # (Auto) 0 Baso # (Auto) 0 PT 24.5 H 22.1 H INR 2.2 H 2.0 H APTT 29 Fibrinogen 533 H Sodium 130 L Potassium 3.7 Chloride 100 Carbon Dioxide 22 BUN 47 H Creatinine 1.59 H Estimated GFR 44 L BUN/Creatinine Ratio 29.6 H Glucose 149 H Calcium 7.4 L Blood Type A Positive Antibody Screen Negative [facility] Medical History Enlarged lymph node in neck MIROSLAVA (obstructive sleep apnea) Silent ischemia 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 (BMI 30-39.9) 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 Snoring Excessive daytime sleepiness Nasal polyposis GERD (gastroesophageal reflux disease) Diverticular disease of large intestine Hyperlipidemia CAD (coronary artery disease) (2004) 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 Obstructive sleep apnea of adult (~2015) Surgical History History of total right knee replacement History of cardiac cath Hx of toe surgery (~2006) Status post arthroscopic partial lateral meniscectomy Hx of colectomy (2002) History of coronary artery stent placement History of cataract removal with insertion of prosthetic lens Social History marital status: details: with progressive supranuclear palsy household members: spouse lives independently: Yes caregiver/support person: Yes (he is the caregiver for his ) housing: house Smoking Status: Never smoker alcohol intake: current Assessment & Plan Assessment & Plan narrative: 1. Acute gangrenous cholecystitis, postoperative day 0, improved. Ongoing postoperative care per General surgery. He remains on antibiotics. 2. E coli bacteremia, secondary to 1. Improved. Pansensitive. Will discontinue Zosyn therapy and initiate ceftriaxone. White blood cell count did increase from 12.8 this morning to 22.7 this afternoon. Likely that is secondary to stress-induced response related to surgery. Per the op report, the gallbladder was not perforated. 3. Paroxysmal atrial fibrillation on chronic Eliquis anticoagulation, stable. Eliquis has been held for surgery. Heparin was held for surgery today. 4. 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, stable. Blood pressures have been normotensive today. 5. Coronary artery disease, stable. Denies current symptoms. 6. Obstructive sleep apnea, stable. Chronic, stable 7. Hyponatremia, improved. 8. Acute blood loss anemia, active. 9. MIQUEL, new and active. 10. Urine retention, new and active. PLAN: -continue antibiotics. -OOB, advance activity -resume Eliquis. -repeat creatinine and hemoglobin this afternoon. -monitor urination and postvoid residuals. Start Flomax. EDWARDO: 09/27. Time-Based Coding :: [TOTAL MINUTES] spent with patient and on the chart (including review of chart, obtaining history, exam, reviewing outside data, placing orders, documenting exam and treatment plan, and counseling patient) on [DATE]. Quality VTE Deep Vein Thrombosis/Pulmonary Embolism Present on Admission: No
[2024-09-26] MEDS: METOPROLOL ER 25 MG TABLET PO (08:06)
[2024-09-26] MEDS: TAMSULOSIN 0.4 MG CAPSULE PO (09:54)
[2024-09-26] MEDS: SODIUM FERRIC GLUCONAT/SUCROSE 125 MG in SODIUM CHLORIDE 0.9% 100 ML 110 MG IV (09:54)
--- NOTE | 2024-09-26 10:34 | CM.DPC ---
DCP COnt: Per MD, pt not yet medically stable to discharge yet today but likely in another 1-2 days on PO abx and no identified barriers to discharge. JOAN Avila
--- NOTE | 2024-09-26 12:48 | P.PN_ITS ---
Subjective Subjective Date Patient Seen: 09/26/24 Time Patient Seen: 12:48 Interval history: Sitting up in a chair, eating lunch. Feels well, no lightheadedness. Exam Vital Signs (past 8 hours): - 09/26/24 08:00 09/26/24 08:06 09/26/24 09:00 Temperature 97.0 F L Pulse Rate 67 67 Respiratory Rate 16 Blood Pressure 106/57 L 106/57 L Pulse Oximetry 97 97 Oxygen Flow Rate 0 0 09/26/24 09:55 09/26/24 12:00 Temperature 97.5 F L Pulse Rate 71 71 Respiratory Rate 14 Blood Pressure 106/47 L Pulse Oximetry 98 Oxygen Flow Rate 0 Oxygen Delivery Method Room Air Oxygen Flow Rate 0 Narrative Exam Narrative: incisions are clean, dry, intact Objective Labs 09/26/24 06:06 09/26/24 06:06 Labs: Laboratory Results - last 24 hr 09/25/24 09/25/24 09/26/24 12:20 18:12 06:06 WBC 13.4 H RBC 2.71 L Hgb 10.0 L 8.6 L Hct 29.4 L 24.9 L MCV 91.8 MCH 31.8 MCHC 34.6 RDW 12.8 Plt Count 153 Neut % (Auto) 90.1 H Lymph % (Auto) 2.7 L [place] % (Auto) 7.1 Eos % (Auto) 0.0 L Baso % (Auto) 0.1 Neut # (Auto) 88188 H Lymph # (Auto) 400 L [place] # (Auto) 1000 H Eos # (Auto) 0 Baso # (Auto) 0 PT 24.5 H 22.1 H INR 2.2 H 2.0 H Fibrinogen 533 H Sodium 130 L Potassium 3.7 Chloride 100 Carbon Dioxide 22 BUN 47 H Creatinine 1.59 H Estimated GFR 44 L BUN/Creatinine Ratio 29.6 H Glucose 149 H Calcium 7.4 L Blood Type A Positive Antibody Screen Negative [facility] Medical History Enlarged lymph node in neck MIROSLAVA (obstructive sleep apnea) Silent ischemia 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 (BMI 30-39.9) 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 Snoring Excessive daytime sleepiness Nasal polyposis GERD (gastroesophageal reflux disease) Diverticular disease of large intestine Hyperlipidemia CAD (coronary artery disease) (2004) 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 Obstructive sleep apnea of adult (~2015) Surgical History History of total right knee replacement History of cardiac cath Hx of toe surgery (~2006) Status post arthroscopic partial lateral meniscectomy Hx of colectomy (2002) History of coronary artery stent placement History of cataract removal with insertion of prosthetic lens Social History marital status: details: with progressive supranuclear palsy household members: spouse lives independently: Yes caregiver/support person: Yes (he is the caregiver for his ) housing: house Smoking Status: Never smoker alcohol intake: current Assessment & Plan Post-op Postoperative Procedures: Procedures Operation Date: 09/25/24 09:00 Actual Procedure Side Surgeon p Laparoscopic Cholecystectomy Ifeanyi Loo MD Postoperative day: 1 Postoperative status: doing well and anemia Postoperative status narrative: Does not require blood transfusion at this time. Check for stable H&H prior to restarting anticoagulants; INR remains elevated. Postoperative plan: see orders and advance diet Time Spent With Patient Time with patient: less than 15 minutes Quality VTE Deep Vein Thrombosis/Pulmonary Embolism Present on Admission: No
[2024-09-26] MEDS: cefTRIAXone 2,000 MG in SODIUM CHLORIDE 0.9% 100 ML 200 MG IV (15:18)
[2024-09-26] MEDS: OXYCODONE IR 5 MG TABLET PO (15:19)
[2024-09-26 16:21] LABS: Hematocrit 24.1 % (41-53); Hemoglobin 8.2 g/dL (13.5-17.5); Mean Corpuscular HGB Conc 33.9 % (30-36); Mean Corpuscular Volume 91.5 fL (80-100); Platelet Count 166 X10^3/uL (150-400); Red Blood Cell Count 2.63 X10^6/uL (4.5-5.9); Red Cell Distribution Width 12.9 % (11.6-14.8); White Blood Cell Count 15.2 X10^3/uL (4.5-11.0)
[2024-09-26 16:37] LABS: BUN Creatinine Ratio 30.9 (6-22); Blood Urea Nitrogen 47 mg/dL (9-20); Calcium 7.3 mg/dL (8.4-10.2); Carbon Dioxide 23 mmol/L (22-32); Chloride 101 mmol/L (98-107); Estimated Glomerular Filt Rate 46 mL/min (>60); Glucose 168 mg/dL (80-110); HEMOLYSIS < 15 (0-50); Potassium 3.9 mmol/L (3.4-5.1); Sodium 128 mmol/L (137-145)
[2024-09-26] MEDS: TIZANIDINE 4 MG TABLET PO (20:03)
[2024-09-27] VITALS (9 sets, daily range): BP systolic 123–150; BP diastolic 48–70; PULSE 60–71; RESP 16–18; TEMP 36–36.6; O2SAT 96–98
[2024-09-27] MEDS: OXYCODONE IR 5 MG TABLET PO ×4 (00:59→19:54)
[2024-09-27] MEDS: PANTOPRAZOLE DR 20 MG TABLET PO ×2 (06:38→08:25)
[2024-09-27 07:08] LABS: Fibrinogen Activity 645 mg/dL (193-507)
[2024-09-27 08:01] LABS: Hematocrit 24.8 % (41-53); Hemoglobin 8.5 g/dL (13.5-17.5); Mean Corpuscular HGB Conc 34.4 % (30-36); Mean Corpuscular Hemoglobin 31.7 PG (26-34); Platelet Count 199 X10^3/uL (150-400); Red Blood Cell Count 2.69 X10^6/uL (4.5-5.9); Red Cell Distribution Width 12.7 % (11.6-14.8); White Blood Cell Count 14.1 X10^3/uL (4.5-11.0)
[2024-09-27 08:16] LABS: Alanine Aminotransferase 185 IU/L (<50); Albumin Globulin Ratio 1.2 (1.0-2.8); Alkaline Phosphatase 56 U/L (38-126); Aspartate Aminotransferase 133 IU/L (17-59); BUN Creatinine Ratio 29.9 (6-22); Bilirubin Total 0.3 mg/dL (0.2-1.3); Blood Urea Nitrogen 40 mg/dL (9-20); Calcium 7.7 mg/dL (8.4-10.2); Carbon Dioxide 24 mmol/L (22-32); Chloride 103 mmol/L (98-107); Estimated Glomerular Filt Rate 54 mL/min (>60); Globulin 2.5 g/dL (1.7-4.1); Glucose 119 mg/dL (80-110); HEMOLYSIS < 15 (0-50); Potassium 3.7 mmol/L (3.4-5.1); Sodium 133 mmol/L (137-145); Total Protein 5.5 g/dL (6.3-8.2)
[2024-09-27] MEDS: TAMSULOSIN 0.4 MG CAPSULE PO (08:25)
[2024-09-27] MEDS: ACETAMINOPHEN 325 MG TABLET 650 MG PO ×3 (08:25→19:49)
[2024-09-27] MEDS: METOPROLOL ER 25 MG TABLET PO (08:26)
[2024-09-27] MEDS: SODIUM CHLORIDE 0.9% FLUSH 10 ML IV ×2 (09:09→20:11)
[2024-09-27] MEDS: SODIUM FERRIC GLUCONAT/SUCROSE 125 MG in SODIUM CHLORIDE 0.9% 100 ML 110 MG IV (09:09)
--- NOTE | 2024-09-27 10:26 | P.PN_ITS ---
Subjective Subjective Date Patient Seen: 09/27/24 Time Patient Seen: 10:27 Interval history: Patient feels a little more tired today. His blood counts have been stable in the last 3 checks. His blood pressure and heart rate have been stable. He is noticing some incisional pain at his left upper quadrant incision. Exam Vital Signs (past 8 hours): - 09/27/24 04:00 09/27/24 08:00 Temperature 97.2 F L 96.8 F L Pulse Rate 60 71 Respiratory Rate 16 18 Blood Pressure 123/66 140/64 Pulse Oximetry 96 97 Oxygen Flow Rate 0 0 Oxygen Delivery Method Room Air Oxygen Flow Rate 0 Narrative Exam Narrative: Gen: NAD, sitting comfortably in bed, appears well HEENT: Sclera are anicteric, head is normocephalic and atraumatic, trachea is midline. CV: RRR, no JVD Resp: clear to auscultation bilaterally, equal chest wall movement bilaterally Abd: soft, nontender, normoactive bowel sounds; incisions are clean, dry, intact Ext: no edema, full range of motion Neuro: Cranial nerves II-XII grossly intact, no focal deficits Skin: No erythema or ecchymosis Objective Labs 09/27/24 07:53 09/27/24 07:53 Labs: Laboratory Results - last 24 hr 09/25/24 09/26/24 09/27/24 14:45 16:12 07:53 WBC 15.2 H 14.1 H RBC 2.63 L 2.69 L Hgb 8.2 L 8.5 L Hct 24.1 L 24.8 L MCV 91.5 92.0 MCH 31.0 31.7 MCHC 33.9 34.4 RDW 12.9 12.7 Plt Count 166 199 Fibrinogen Activity 645 H Sodium 128 L 133 L Potassium 3.9 3.7 Chloride 101 103 Carbon Dioxide 23 24 BUN 47 H 40 H Creatinine 1.52 H 1.34 H Estimated GFR 46 L 54 L BUN/Creatinine Ratio 30.9 H 29.9 H Glucose 168 H 119 H Calcium 7.3 L 7.7 L Total Bilirubin 0.3 AST 133 H ALT 185 H Alkaline Phosphatase 56 Total Protein 5.5 L Albumin 3.0 L Globulin 2.5 Albumin/Globulin Ratio 1.2 [facility] Medical History (Updated 09/27/24 @ 10:31 by Ifeanyi Loo MD) E. 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 Snoring Excessive daytime sleepiness Nasal polyposis GERD (gastroesophageal reflux disease) Diverticular disease of large intestine Hyperlipidemia CAD (coronary artery disease) (2004) 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 Obstructive sleep apnea of adult (~2016) Surgical History History of total right knee replacement History of cardiac cath Hx of toe surgery (~2006) Status post arthroscopic partial lateral meniscectomy Hx of colectomy (2002) History of coronary artery stent placement History of cataract removal with insertion of prosthetic lens Social History marital status: details: with progressive supranuclear palsy household members: spouse lives independently: Yes caregiver/support person: Yes (he is the caregiver for his ) housing: house Smoking Status: Never smoker alcohol intake: current Assessment & Plan Post-op Assessment and plan (1) E. coli sepsis: Assessment and Plan narrative: Continue on IV antibiotics, oral antibiotics and discharge. (2) Acute cholecystitis: Assessment and Plan narrative: Status post laparoscopic cholecystectomy. Postoperative Procedures: Procedures Operation Date: 09/25/24 09:00 Actual Procedure Side Surgeon p Laparoscopic Cholecystectomy Ifeanyi Loo MD Postoperative day: 2 Postoperative status: anemia Postoperative status narrative: Anemia is stable. Okay to restart anticoagulation if needed. Quality VTE Deep Vein Thrombosis/Pulmonary Embolism Present on Admission: No
--- NOTE | 2024-09-27 10:59 | P.PN_ITS ---
Subjective Subjective Interval history: Summary: The patient was status post a lap teresita with a 1 L EBL. He also has a coli bacteremia with cultures match in the bile. He was slowly improving but not quite ready for discharge. Subjective: His energy level is lower today. No fevers, or chills. He has some abdominal pain around his periumbilical incision. No nausea. He denies chest pain, or dyspnea. Exam Vital Signs (past 8 hours): - 09/27/24 04:00 09/27/24 08:00 Temperature 97.2 F L 96.8 F L Pulse Rate 60 71 Respiratory Rate 16 18 Blood Pressure 123/66 140/64 Pulse Oximetry 96 97 Oxygen Flow Rate 0 0 Oxygen Delivery Method Room Air Oxygen Flow Rate 0 Narrative Exam Narrative: NAD, alert and oriented. Fluent speech. Lungs are clear, normal rate and effort. Heart is regular, no murmur gallop or rub. Abdomen is soft, non distended. There was minimal tenderness of the abdomen other than around the laparoscopic sites. There is no distention or evidence of infection or drainage. Extremities are free of edema. Objective Labs 09/27/24 07:53 09/27/24 07:53 Labs: Laboratory Results - last 24 hr 09/25/24 09/26/24 09/27/24 14:45 16:12 07:53 WBC 15.2 H 14.1 H RBC 2.63 L 2.69 L Hgb 8.2 L 8.5 L Hct 24.1 L 24.8 L MCV 91.5 92.0 MCH 31.0 31.7 MCHC 33.9 34.4 RDW 12.9 12.7 Plt Count 166 199 Fibrinogen Activity 645 H Sodium 128 L 133 L Potassium 3.9 3.7 Chloride 101 103 Carbon Dioxide 23 24 BUN 47 H 40 H Creatinine 1.52 H 1.34 H Estimated GFR 46 L 54 L BUN/Creatinine Ratio 30.9 H 29.9 H Glucose 168 H 119 H Calcium 7.3 L 7.7 L Total Bilirubin 0.3 AST 133 H ALT 185 H Alkaline Phosphatase 56 Total Protein 5.5 L Albumin 3.0 L Globulin 2.5 Albumin/Globulin Ratio 1.2 PFSH Medical History E. 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 Snoring Excessive daytime sleepiness Nasal polyposis GERD (gastroesophageal reflux disease) Diverticular disease of large intestine Hyperlipidemia CAD (coronary artery disease) (2004) 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 Obstructive sleep apnea of adult (~2016) Surgical History History of total right knee replacement History of cardiac cath Hx of toe surgery (~2006) Status post arthroscopic partial lateral meniscectomy Hx of colectomy (2002) History of coronary artery stent placement History of cataract removal with insertion of prosthetic lens Social History marital status: details: with progressive supranuclear palsy household members: spouse lives independently: Yes caregiver/support person: Yes (he is the caregiver for his ) housing: house Smoking Status: Never smoker alcohol intake: current Assessment & Plan Assessment & Plan narrative: 1. Acute gangrenous cholecystitis, improved. Ongoing postoperative care per General surgery. He remains on antibiotics. 2. E coli bacteremia, secondary to 1. Improved. Pansensitive. 3. Paroxysmal atrial fibrillation on chronic Eliquis anticoagulation, stable. 4. 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, stable. 5. Coronary artery disease, stable. Denies current symptoms. 6. Obstructive sleep apnea, stable. Chronic, stable 7. Hyponatremia, improved. 8. Acute blood loss anemia, active. 9. MIQUEL, new and improved. 10. Urine retention, new and improved (with Flomax). PLAN -continue ceftriaxone, and follow cultures. Anticipate a total of 14 days of antibiotics, likely finishing with oral quinolone. -resume anticoagulation -lidocaine patch to abdomen DVT prophylaxis: Resume apixaban today. EDWARDO: 09/28. If abdominal pain is controlled and he was ambulating without difficulty. Also monitor WBC, he was slightly up today. Time-Based Coding :: [TOTAL MINUTES] spent with patient and on the chart (including review of chart, obtaining history, exam, reviewing outside data, placing orders, documenting exam and treatment plan, and counseling patient) on [DATE]. Quality VTE Deep Vein Thrombosis/Pulmonary Embolism Present on Admission: No
[2024-09-27] MEDS: APIXABAN 5 MG TABLET PO ×2 (12:11→20:10)
[2024-09-27] MEDS: LIDOCAINE 5% PATCH 1 EACH TOP (12:11)
[2024-09-27] MEDS: hydrOXYzine HCL 25 MG TABLET PO (12:11)
[2024-09-27] MEDS: cefTRIAXone 2,000 MG in SODIUM CHLORIDE 0.9% 100 ML 200 MG IV (14:58)
[2024-09-27] MEDS: TIZANIDINE 4 MG TABLET PO (20:10)
[2024-09-28] VITALS: BP 150/59; PULSE 72; TEMP 36.2; O2SAT 99
[2024-09-28 01:17] VITALS: O2SAT 99
[2024-09-28 04:00] VITALS: BP 158/79; PULSE 73; RESP 16; TEMP 36.5; O2SAT 98
[2024-09-28] MEDS: ACETAMINOPHEN 325 MG TABLET 650 MG PO ×2 (04:09→12:26)
[2024-09-28 04:28] VITALS: O2SAT 98
[2024-09-28] MEDS: PANTOPRAZOLE DR 20 MG TABLET PO (06:21)
[2024-09-28 07:36] LABS: Hematocrit 24.6 % (41-53); Hemoglobin 8.5 g/dL (13.5-17.5); Mean Corpuscular HGB Conc 34.5 % (30-36); Mean Corpuscular Hemoglobin 31.6 PG (26-34); Mean Corpuscular Volume 91.6 fL (80-100); Platelet Count 208 X10^3/uL (150-400); Red Blood Cell Count 2.68 X10^6/uL (4.5-5.9); Red Cell Distribution Width 13.2 % (11.6-14.8); White Blood Cell Count 10.2 X10^3/uL (4.5-11.0)
[2024-09-28 07:42] LABS: BUN Creatinine Ratio 28.2 (6-22); Blood Urea Nitrogen 33 mg/dL (9-20); Carbon Dioxide 25 mmol/L (22-32); Chloride 104 mmol/L (98-107); Estimated Glomerular Filt Rate > 60 mL/min (>60); Glucose 103 mg/dL (80-110); HEMOLYSIS < 15 (0-50); Potassium 3.8 mmol/L (3.4-5.1); Sodium 134 mmol/L (137-145)
[2024-09-28 08:00] VITALS: BP 154/72; PULSE 72; RESP 17; TEMP 36.6; O2SAT 95; O2SAT 96
[2024-09-28] MEDS: SODIUM CHLORIDE 0.9% FLUSH 10 ML IV (09:00)
[2024-09-28] MEDS: hydrOXYzine HCL 25 MG TABLET PO (09:03)
[2024-09-28] MEDS: TAMSULOSIN 0.4 MG CAPSULE PO (09:03)
[2024-09-28] MEDS: OXYCODONE IR 5 MG TABLET PO ×2 (09:03→12:26)
[2024-09-28] MEDS: METOPROLOL ER 25 MG TABLET PO (09:03)
[2024-09-28] MEDS: APIXABAN 5 MG TABLET PO (09:04)
--- NOTE | 2024-09-28 10:45 | PM.DS.1 ---
History of Present Illness History of Present Illness Date Patient Seen: 09/28/24 Time Patient Seen: 09:20 Date of Onset of Symptoms: 09/23/24 Chief complaint: R SIDE ABD PAIN T-3 Narrative: Chief complaint: R SIDE ABD PAIN T-3 Narrative: The patient was an 79-year-old male with history of CAD, and atrial fibrillation on chronic Eliquis. He presented to the ED today with right sided abdominal pain which has been ongoing for 3 days. He was imaged with a CT scan which revealed evidence of cholecystitis [place] [address]. General surgery was consulted for probable acute cholecystitis. HIDA scan is ordered and pending. He tells me that he was had right upper quadrant pain for 3 days which is described as constant and not radiating to the back, neck, or arm. He notes that he was had no nausea, vomiting, fevers, or chills. He denies any difficulty with urination, or hematuria. No diarrhea or blood per rectum. He was no history of gallbladder attacks. He does have a history of CAD in his had 7 cardiac stents in the back including what sounds like 7 stents into his LAD. He was followed by Dr. Olvera. He was also had atrial fibrillation with an ablation and takes apixaban b.i.d., last dose this morning. Imaging was consistent with cholecystitis with a HIDA scan pending. Surgery is following, anticipation of cholecystectomy Thursday due to OR is being closed on Thursday for work. Discharge Providers Provider Date of admission: 09/25/24 13:44 Discharge Date: 09/28/24 Primary care physician: GAGANDEEP Fraire Discharge provider: José Miguel Khan MD Summary Hospital Course Discharge Diagnosis: 1. Acute gangrenous cholecystitis 2. E coli bacteremia due to 1. 3. Acute blood loss anemia, perioperative 4. Acute kidney injury, resolved 5. Paroxysmal atrial fibrillation on chronic Eliquis anticoagulation 6. Coronary artery disease 7. 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 8. Hyponatremia, resolved 9. Obstructive sleep apnea 10. Urinary retention due to underlying BPH Hospital Course: The patient was admitted and was treated with broad-spectrum antibiotics and underwent laparoscopic cholecystectomy on 09/23/2024, complicated by 1 L estimated blood loss and subsequent acute blood loss anemia but did not require blood transfusion. He otherwise experienced an uneventful postoperative course. Blood and bile cultures revealed pansensitive E coli treated with broad-spectrum antibiotics, transitioned to oral antibiotics at the time of discharge. He was continued on his usual medications otherwise during the hospitalization. Leukocytosis, elevated creatinine and sodium normalized during hospitalization. He experienced urinary retention which responded to oral tamsulosin. He was feeling well and able to tolerate a diet, ambulating without limitation, and interested in discharge home. No other issues arose. Status at Discharge Cognitive/behavioral status at discharge: oriented Functional status at discharge: independent ambulation Overall status at discharge: patient is back to baseline Time Spent with Patient Time spent: Less than 30 minutes Exam Vital Signs (past 8 hours): - 09/28/24 04:00 09/28/24 04:28 09/28/24 08:00 Temperature 97.7 F 97.8 F Pulse Rate 73 72 Respiratory Rate 16 17 Blood Pressure 158/79 H 154/72 H Pulse Oximetry 98 98 96 Oxygen Delivery Method Room Air Oxygen Flow Rate 0 Oxygen Delivery Method Room Air Oxygen Flow Rate 0 Narrative Exam Narrative: NAD, alert and oriented. Fluent speech. Lungs are clear, normal rate and effort. Heart is regular, no murmur gallop or rub. Abdomen is soft, non distended. There was minimal tenderness of the abdomen other than around the laparoscopic sites. There is no distention or evidence of infection or drainage. Extremities are free of edema. Objective Imaging *: Radiologist's impression: 1. Abdomen pelvis CT scans all [id number]: 1. Findings are highly suspicious for acute cholecystitis. 2. Severe coronary artery calcifications. 3. Minimal bibasilar atelectasis and right pleural fluid. 4. Incidental note made of high-grade canal stenosis at L4-L5. 2. HIDA scan 09/23/2024: Nonvisualization of the gallbladder, concerning for acute cholecystitis. Labs 09/28/24 06:40 09/28/24 06:40 Labs: Laboratory Results - last 24 hr 09/28/24 06:40 WBC 10.2 RBC 2.68 L Hgb 8.5 L Hct 24.6 L MCV 91.6 MCH 31.6 MCHC 34.5 RDW 13.2 Plt Count 208 Sodium 134 L Potassium 3.8 Chloride 104 Carbon Dioxide 25 BUN 33 H Creatinine 1.17 Estimated GFR > 60 BUN/Creatinine Ratio 28.2 H Glucose 103 Calcium 8.0 L [facility] Medical History CAD (coronary artery disease) (2004) Diverticular disease of large intestine E. 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 Nasal polyposis Obesity (BMI 30-39.9) Obstructive sleep apnea of adult (~2016) MIROSLAVA (obstructive sleep apnea) Silent ischemia Snoring Surgical History History of cardiac cath History of cataract removal with insertion of prosthetic lens History of coronary artery stent placement History of total right knee replacement Hx of colectomy (2002) Hx of toe surgery (~2006) Status post arthroscopic partial lateral meniscectomy Social History marital status: details: with progressive supranuclear palsy household members: spouse lives independently: Yes caregiver/support person: Yes (he is the caregiver for his ) housing: house Smoking Status: Never smoker alcohol intake: current Discharge Plan Discharge Plan Patient Disposition: Home Provider Discharge Comment: Please arrange 1 week hospital follow-up with new PCP, general surgery followup as directed when cleared for discharge Discharge orders & Medications Prescriptions: New tamsulosin [Flomax] 0.4 mg Capsule 0.4 mg PO DAILY Qty: 30 0RF amoxicillin-pot clavulanate 875-125 mg Tablet 1 tab PO BID Qty: 20 0RF oxycodone 5 mg Tablet 5 mg PO Q3H PRN (Reason: Pain, Moderate (4-6)) Qty: 10 0RF Continued rosuvastatin [Crestor] 20 mg tablet 10 mg PO QDAY Qty: 0 losartan-hydrochlorothiazide 100-25 mg tablet 125 tab PO DAILY spironolactone 25 mg tablet 25 mg PO DAILY aspirin 81 mg Tablet,Delayed Release (Dr/Ec) 81 mg PO BID Qty: 84 0RF Rx Instructions: once a day metoprolol succinate 25 mg Tablet Extended Release 24 Hr 25 mg PO DAILY Eliquis 5 mg tablet 5 mg PO BID (DME) ResMed AirSense 10 Auto See Rx Instructions .Route .MEDSUPPLY Rx Instructions: CPAP Min: 6 Max: 12 DME: Follow up/Referrals: Tammie Alejandre ARNP [Primary Care Provider] - Visit Report/Discharge Packet Instructions: Good Food Sources of Iron, DI for Laparoscopy, How to Prevent Falls, DI for Prescription Opioid Use, DI for Laparoscopic Cholecystectomy, [facility]: Wound Care Stand Alone Forms: Patient Portal/API, Stroke Signs & Symptoms Discharge Data Primary Care Provider: Tammie Alejandre VTE Deep Vein Thrombosis/Pulmonary Embolism Present on Admission: No MIPS - Admit I confirm the patient?s Advance Care Plan is present, Code status is documented, Surrogate decision maker is in patient?s record [If Yes, STOP here]: Yes MIPS - Meds 'Current medications' to include all prescriptions, [id number]-[id number] products, herbals, cannabis/cannabidiol products, and vitamin/mineral/dietary (nutritional) supplements. I have utilized all available resources to obtain, update, or review the patient?s current medications. [If Yes, STOP here]: Yes MIPS - DC The patient has a history of heart transplant or Left Ventricular Assist Device (LVAD). If yes, STOP here.: No The patient has current or prior documentation of left ventricular ejection fraction (LVEF) less than or equal to 40%, or moderate or severely depressed left ventricular systolic function.: No A. The patient was prescribed or already taking an Angiotensin-Converting Enzyme (ROSE MARIE) Inhibitor, or Angiotensin Receptor Tobias (ARB).: No B. The patient was prescribed or already taking a beta-tobias. [If Yes to Both A & B, STOP here]: Yes Patient not prescribed/taking ROSE MARIE or ARB, no reason given.: No Patient not prescribed/taking beta-tobias, no reason given.: No IH PROFEE Charge Codes Discharge inpatient/observation: [id number]
--- NOTE | 2024-09-28 10:58 | P.PN_ITS ---
Subjective Subjective Date Patient Seen: 09/28/24 Time Patient Seen: 10:58 Interval history: Feels better today than yesterday. Feels ready for discharge. No fevers or chills. Exam Vital Signs (past 8 hours): - 09/28/24 04:00 09/28/24 04:28 09/28/24 08:00 Temperature 97.7 F 97.8 F Pulse Rate 73 72 Respiratory Rate 16 17 Blood Pressure 158/79 H 154/72 H Pulse Oximetry 98 98 96 Oxygen Delivery Method Room Air Oxygen Flow Rate 0 Oxygen Delivery Method Room Air Oxygen Flow Rate 0 Narrative Exam Narrative: incisions are clean, dry, intact Objective Labs 09/28/24 06:40 09/28/24 06:40 Labs: Laboratory Results - last 24 hr 09/28/24 06:40 WBC 10.2 RBC 2.68 L Hgb 8.5 L Hct 24.6 L MCV 91.6 MCH 31.6 MCHC 34.5 RDW 13.2 Plt Count 208 Sodium 134 L Potassium 3.8 Chloride 104 Carbon Dioxide 25 BUN 33 H Creatinine 1.17 Estimated GFR > 60 BUN/Creatinine Ratio 28.2 H Glucose 103 Calcium 8.0 L PFSH Medical History CAD (coronary artery disease) (2004) Diverticular disease of large intestine E. 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 Nasal polyposis Obesity (BMI 30-39.9) Obstructive sleep apnea of adult (~2016) MIROSLAVA (obstructive sleep apnea) Silent ischemia Snoring Surgical History History of cardiac cath History of cataract removal with insertion of prosthetic lens History of coronary artery stent placement History of total right knee replacement Hx of colectomy (2002) Hx of toe surgery (~2006) Status post arthroscopic partial lateral meniscectomy Social History marital status: details: with progressive supranuclear palsy household members: spouse lives independently: Yes caregiver/support person: Yes (he is the caregiver for his ) housing: house Smoking Status: Never smoker alcohol intake: current Assessment & Plan Post-op Postoperative Procedures: Procedures Operation Date: 09/25/24 09:00 Actual Procedure Side Surgeon p Laparoscopic Cholecystectomy Ifeanyi Loo MD Postoperative day: 3 Postoperative status narrative: OK for discharge Postoperative plan: discharge Postoperative plan narrative: Follow-up in 2 weeks. Augmentin for E coli sepsis from gangrenous cholecystitis. Quality VTE Deep Vein Thrombosis/Pulmonary Embolism Present on Admission: No
[2024-09-28] MEDS: AMOXICILLIN/CLAV 875/125 MG 1 TAB PO (11:41)
[2024-09-28 12:00] VITALS: O2SAT 94
--- NOTE | 2024-09-28 13:51 | PC.NURSE ---
Pt feels ready to d/c to home. Tolerates diet w/out problems. Vds w/out diff. Pt reports po pain meds effective. Has been up and amb in hallways. Denies any concerns about going home. MD here and gave discharge instructions. (Both hospitslist and surgeon) Given discharge packet and reviewed. Pharmacist dropped off rx to last until tomorrow when pt can pick pack worker the meds which were esent. Pt reports he is voiding w/out problems now that he is on flomax. Questions answered. Pt d/c to home via auto w/family.
== END 2024-09-28 13:15 | disposition home or self-care (01) | DRG 854 ==
LOC: ED 17:12 → AC 17:19
PROVIDERS: Family Medicine; Student in an Organized Health Care Education/Training Program; Surgery; Admitting Provider Hospitalist; Emergency Provider Emergency Medicine; PCP Registered Nurse; Referring Provider Emergency Medicine; Visit Provider Hospitalist
PROC: 0FT44ZZ Resection of Gallbladder, Percutaneous Endoscopic Approach (ICD-10-PCS; CPT 47562; principal; 2024-09-25 09:00)
DX: A41.51 Sepsis due to Escherichia coli [E. coli] (principal); D62 Acute posthemorrhagic anemia; K81.0 Acute cholecystitis; E87.1 Hypo-osmolality and hyponatremia; N17.9 Acute kidney failure, unspecified; K82.A1 Gangrene of gallbladder in cholecystitis; I25.10 Atherosclerotic heart disease of native coronary artery without angina pectoris; I10 Essential (primary) hypertension; I48.0 Paroxysmal atrial fibrillation; G47.33 Obstructive sleep apnea (adult) (pediatric); E78.5 Hyperlipidemia, unspecified; K21.9 Gastro-esophageal reflux disease without esophagitis; B96.20 Unspecified Escherichia coli [E. coli] as the cause of diseases classified elsewhere; N40.1 Benign prostatic hyperplasia with lower urinary tract symptoms; R33.8 Other retention of urine; Z79.01 Long term (current) use of anticoagulants; Z95.5 Presence of coronary angioplasty implant and graft
CPT/HCPCS: 36415; 36430; 74177; 78226; 80048; 80053; 81003; 82962; 83605; 83690; 84484; 85014; 85018; 85025; 85027; 85384; 85610; 85730; 86850; 86900; 86901; 86927; 87040; 87070; 87075; 87077; 87154; 87186; 87205; 93005; 96361; 96365; 96375; 96376; 99213; 99284; 99285; A9537; G0378; P9016; A9270; J0134; J0330; J0690; J0696; J1100; J1171; J1644; J1885; J2405; J2543; J2704; J2916; J3010; J3490; Q9967

== ENCOUNTER → 2025-01-13 10:24 | Outpatient (CLI) | payer MEDICARE, OTHER, SELFPAY ==
[2024-09-30 11:42] VITALS: BMI 31.4
[2025-01-13 11:45] LABS: Prostate Specific Antigen 2.15 ng/mL (0.10-4.00)
== END ==
PROVIDERS: PCP Registered Nurse; Referring Provider Urology; Visit Provider Urology
DX: R97.20 Elevated prostate specific antigen [PSA] (principal)
CPT/HCPCS: 36415; 84153

== ENCOUNTER 2025-04-03 09:13 | Day surgery (SDC) | payer MEDICARE, OTHER, SELFPAY ==
[2024-09-30 11:42] VITALS: BMI 31.4
[2025-02-24 07:16] VITALS: BMI 30.3
--- NOTE | 2025-04-03 | PATH_ITS ---
[facility] Accession Number: [id number] No. of containers..01 Tissue . 01 Material submitted: . colon - ASCENDING POLYP . 01 Diagnosis: ASCENDING POLYP: Tubular adenoma. [facility] 04/10/2025 1153 Local . 01 Electronically signed: . Mike Dominguez MD, Pathologist NPI- [id number] . 01 Gross description: . The specimen is received in formalin with two patient identifiers and ascending colon polyp, and consists of a single, 0.4 cm in greatest dimension, medrano, polypoid tissue, submitted in toto in cassette A1. ([id number]) /MRV 04/10/2025 1153 Local . 01 Pathologist provided ICD-10: D12.2 . 01 CPT . 286767 Specimen Comment: A courtesy copy of this report has been sent to [phone] Performed at: [address] [id number] MD Mike Dominguez MD Phone: [phone]
[2025-04-03 09:37] VITALS: BP 145/69; PULSE 62; RESP 16; TEMP 36.1; O2SAT 99
--- NOTE | 2025-04-03 09:51 | PM.HP.IH.1 ---
History of Present Illness History of Present Illness Date Patient Seen: 04/03/25 Chief complaint: SDC Narrative: Need for colorectal cancer screening last colonoscopy nearly 10 years ago [facility] Medical History E. 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 Snoring Excessive daytime sleepiness Nasal polyposis GERD (gastroesophageal reflux disease) Diverticular disease of large intestine Hyperlipidemia CAD (coronary artery disease) (2004) 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 Obstructive sleep apnea of adult (~2015) Surgical History Hx of cholecystectomy History of total right knee replacement History of cardiac cath Hx of toe surgery (~2006) Status post arthroscopic partial lateral meniscectomy Hx of colectomy (2002) History of coronary artery stent placement History of cataract removal with insertion of prosthetic lens Social History marital status: details: with progressive supranuclear palsy number of children: 2 household members: none lives independently: Yes caregiver/support person: Yes (he is the caregiver for his ) housing: house Smoking Status: Never smoker alcohol intake: current caffeine: Yes Meds Home Medications and Allergies Home Medications ?Medication ?Instructions ?Recorded ?Confirmed ?Type losartan 100 125 tab PO DAILY 11/21/21 04/03/25 History mg-hydrochlorothiazide 25 mg tablet rosuvastatin 20 mg tablet (Crestor) 10 mg PO QDAY #0 tabs 11/21/21 04/03/25 History spironolactone 25 mg tablet 25 mg PO DAILY 11/21/21 01/19/25 History ResMed AirSense 10 Auto 01/01/22 01/19/25 History aspirin 81 mg tablet,delayed 81 mg PO BID #84 tabs 08/21/22 04/03/25 Rx release apixaban 5 mg tablet (Eliquis) 5 mg PO BID 07/05/24 04/03/25 History metoprolol succinate 25 mg 25 mg PO DAILY 09/23/24 04/03/25 History tablet,extended release 24 hr tamsulosin 0.4 mg capsule 0.8 mg (2 x 0.4 mg) PO DAILY #180 10/18/24 01/19/25 Rx caps Allergies Allergy/AdvReac Type Severity Reaction Status Date / Time Sulfa (Sulfonamide AdvReac Severe It felt Verified 10/18/24 08:49 Antibiotics) (SULFA like they (SULFONAMIDE ANTIBIOTICS)) injected acid in my system - IV amlodipine AdvReac Intermediate Rash Verified 10/18/24 08:49 celecoxib (From CELEBREX) AdvReac Mild Made me Verified 10/18/24 08:49 feel really weird Exam Vital Signs (past 8 hours): - 04/03/25 09:37 Temperature 96.9 F L Pulse Rate 62 Respiratory Rate 16 Blood Pressure 145/69 H Pulse Oximetry 99 Oxygen Delivery Method Room Air Oxygen Delivery Method Room Air Narrative Exam Narrative: Oropharynx free of lesion Assessment & Plan Assessment & Plan narrative: Need for colorectal cancer screening. Risks, benefits, alternatives have been explained. Time-Based Coding :: [TOTAL MINUTES] spent with patient and on the chart (including review of chart, obtaining history, exam, reviewing outside data, placing orders, documenting exam and treatment plan, and counseling patient) on [DATE]. PROFEE Slurry Tank Tender Document charge(s): No
--- NOTE | 2025-04-03 09:52 | PM.OP.COLON ---
Operative Date/Time/Diagnoses Date of procedure: 04/03/25 Time of procedure: 10:43 Pre-op diagnosis: See indication and findings Post-op diagnosis: same Procedure & Clinicians Study performed: Colonoscopy Same procedure(s) as scheduled: Yes Indications: Colorectal cancer screening. Patient has also history of partial colectomy for diverticulitis Surgeon: Herb Warren Anesthesia Type: MAC +/- Procedure Notes Procedure in detail: After informed consent was obtained the patient was placed in left lateral decubitus position. The video colonoscope was introduced the rectum slowly advanced cecum. Preparation was good. On slow withdrawal mucosa was carefully examined. The scope was removed. The patient tolerated procedure well. Blood loss none Complications none Sedation mac Findings 1. 4 mm polyp in the ascending colon Jumbo biopsied and removed completely 2. Otherwise negative colonoscopy to cecum Given his age patient does not need follow-up colonoscopy in the future. We will be in touch regarding biopsies
[2025-04-03] MEDS: LACTATED RINGERS 1,000 ML 42 ML IV (09:54)
[2025-04-03 10:44] VITALS: BP 106/55; PULSE 55; RESP 12; TEMP 36.3; O2SAT 97
[2025-04-03 10:49] VITALS: BP 124/59; PULSE 63; RESP 11; O2SAT 98
--- NOTE | 2025-04-03 11:25 | SUR.PHASEII ---
Clarified patient is to restart Eliquis in [address] Warren. Patient was called and notified.
== END 2025-04-03 11:05 | disposition home or self-care (01) ==
PROVIDERS: PCP Family Medicine; Referring Provider Internal Medicine Gastroenterology; Visit Provider Internal Medicine Gastroenterology
PROC: 0DJD8ZZ Inspection of Lower Intestinal Tract, Via Natural or Artificial Opening Endoscopic (ICD-10-PCS; CPT 45378; principal; 2025-04-03 10:30)
DX: Z12.11 Encounter for screening for malignant neoplasm of colon (principal); D12.2 Benign neoplasm of ascending colon; K21.9 Gastro-esophageal reflux disease without esophagitis; G47.33 Obstructive sleep apnea (adult) (pediatric); E78.5 Hyperlipidemia, unspecified; I10 Essential (primary) hypertension; I25.10 Atherosclerotic heart disease of native coronary artery without angina pectoris; E66.9 Obesity, unspecified; Z68.31 Body mass index [BMI] 31.0-31.9, adult; Z95.5 Presence of coronary angioplasty implant and graft; Z90.49 Acquired absence of other specified parts of digestive tract; Z79.01 Long term (current) use of anticoagulants
CPT/HCPCS: 45380; J2405; J2704